=== PATIENT | male | born 1955 | race Caucasian/White ===

== ENCOUNTER 2022-08-20 06:51 | Inpatient (IN) | payer OTHER, MEDICAID ==
[~2022-08-20] VITALS: Ht 177.8 cm; Wt 108.0 kg
[2022-08-20 07:10] VITALS: BP_SYST 157
[2022-08-20 08:06] LABS: BASOPHILS % (AUTO) 0.4 % (0.0-2.0); EOSINOPHILS % (AUTO) 0.3 % (0.0-4.0); HEMATOCRIT 54.1 % (36-54); HEMOGLOBIN 18.2 g/dL (14.0-18.0); LYMPHOCYTES # (AUTO) 1.1 K/uL (1.0-5.5); LYMPHOCYTES % (AUTO) 12.2 % (20.5-51.5); MEAN CORPUSCULAR HEMOGLOBIN 31 pg (27-31); MEAN CORPUSCULAR HGB CONC 34 % (32-36); MEAN CORPUSCULAR VOLUME 91 fL (79.0-98.0); MONOCYTES # (AUTO) 0.5 K/uL (0.0-1.0); MONOCYTES % (AUTO) 5.6 % (1.7-9.3); NEUTROPHILS # (AUTO) 7.2 K/uL (1.8-7.7); NEUTROPHILS % (AUTO) 81.5 % (40.0-70.0); PLATELET COUNT (AUTO) 199 K/uL (130-430); RED BLOOD CELL COUNT(AUTO) 5.93 MIL/uL (4.2-6.2); WHITE BLOOD COUNT (AUTO) 8.8 K/uL (4.8-10.8)
[2022-08-20 08:30] LABS: ALANINE AMINOTRANSFERASE 21 U/L (12-78); ALBUMIN 3.2 g/dL (3.4-4.8); ANION GAP 7 (5-15); ASPARTATE AMINOTRANSFERASE 16 U/L (10-37); CALCIUM 8.8 mg/dL (8.4-11.0); CHLORIDE 101 mmol/L (98-107); CREATININE 0.95 mg/dL (0.55-1.30); FREE T4 (FREE THYROXINE) 1.5 ng/dl (0.8-1.5); GLUCOSE 173 mg/dL (70-99); THYROID STIMULATING HORMONE 0.47 uIu/mL (0.36-3.74); TOTAL BILIRUBIN 1.1 mg/dL (0.0-1.0); UREA NITROGEN, BLOOD 10 mg/dL (8-21)
[2022-08-20 08:31] LABS: GFR AFRICAN AMERICAN 102 mL/min (>90)
[2022-08-20 08:49] LABS: ACETONE, SERUM NEGATIVE (NEGATIVE)
[2022-08-20 09:33] LABS: BILIRUBIN,URINE 1+ (NEGATIVE); CLARITY/URINE CLEAR (CLEAR); COLOR,URINE YELLOW (YELLOW); GLUCOSE,URINE TRACE (NEGATIVE); KETONES,URINE 1+ (NEGATIVE); LEUKOCYTE ESTERASE ,URINE NEGATIVE (NEGATIVE); NITRITE, URINE NEGATIVE (NEGATIVE); PROTEIN URINE 2+ (NEGATIVE)
[2022-08-20 09:43] LABS: BLOOD, URINE TRACE (NEGATIVE)
[2022-08-20 09:53] LABS: BACTERIA,URINE None Seen /HPF (None Seen); HYALINE CASTS, URINE 0-10 /LPF (None Seen); MUCUS,URINE 1+ /LPF (None Seen); WBC,URINE 0-3 /HPF (0-3)
[2022-08-20] MEDS ORDERED: MAGNESIUM SULFATE 50 ML IV PRN (10:00)
[2022-08-20] MEDS ORDERED: MUPIROCIN 2% TOPICAL OINTMENT 22 GM NS PRN (10:00)
[2022-08-20] MEDS ORDERED: ONDANSETRON HCL 4 MG/2 ML VIAL IVP PRN (10:00)
[2022-08-20] MEDS ORDERED: ALBUTEROL SULFATE 0.083% 2.5 MG/3 ML VIAL.NEB INH PRN (10:00)
[2022-08-20] MEDS ORDERED: ACETAMINOPHEN 325 MG TABLET PO PRN ×2 (10:00→12:30)
[2022-08-20] MEDS ORDERED: POTASSIUM CHLORIDE 20 MEQ TAB.PRT.SR PO PRN (10:00)
[2022-08-20] MEDS ORDERED: DEXTROSE 50% JECT 50 ML DISP.SYRIN IVP PRN (10:00)
[2022-08-20] MEDS ORDERED: MORPHINE 2 MG/ML INJ. SYRINGE IVP PRN ×2 (10:00)
[2022-08-20] MEDS ORDERED: LORazepam 2 MG/ML VIAL IVP PRN (10:00)
[2022-08-20] MEDS ORDERED: DOCUSATE SODIUM 100 MG CAPSULE PO PRN (10:00)
[2022-08-20] MEDS ORDERED: iohexoL 350 mgI/mL, 100 ML INFUS..BTL IV ONE (10:13)
[2022-08-20] MEDS ORDERED: METOPROLOL SUCCINATE 25 MG TAB.SR.24H (TOPROL XL) PO ONE (12:30)
[2022-08-20] MEDS ORDERED: FUROSEMIDE 40 MG/4 ML VIAL IVP ONE (13:00)
[2022-08-20 13:49] LABS: INR 1.2 (0.80-1.20); PROTHROMBIN TIME 11.6 SECS (9.5-12.5)
[2022-08-20] MEDS: cefTRIAXone 1 GM IVPB PREMIX 50 ML IV SCH (16:39)
[2022-08-20] MEDS: AZITHROMYCIN 500 MG in NS 250 ML IV SCH (16:39)
[2022-08-20 17:27] VITALS: BP_SYST 126
[2022-08-20 20:00] VITALS: BP_SYST 122
[2022-08-20] MEDS: FUROSEMIDE 40 MG/4 ML VIAL IVP SCH (22:23)
[2022-08-20] MEDS: BUDESONIDE 0.5 MG/2 ML AMPUL.NEB INH SCH (22:45)
[2022-08-20] MEDS: HEPARIN SODIUM,PORCINE 5,000 UNITS/ML VIAL SUBCUT SCH (23:00)
[2022-08-20] MEDS: IPRATROPIUM/ALBUTEROL SULFATE 3 ML AMPUL.NEB (DUONEB) INH SCH ×2 (23:00→23:13)
[2022-08-21] MEDS: IPRATROPIUM/ALBUTEROL SULFATE 3 ML AMPUL.NEB (DUONEB) INH SCH ×5 (03:40→20:40)
[2022-08-21] MEDS: HEPARIN SODIUM,PORCINE 5,000 UNITS/ML VIAL SUBCUT SCH ×4 (06:35→22:39)
[2022-08-21 07:17] LABS: CALCIUM 8.5 mg/dL (8.4-11.0); CREATININE 0.86 mg/dL (0.55-1.30)
[2022-08-21 08:00] VITALS: BP_SYST 153
[2022-08-21 08:06] LABS: BASOPHILS % (AUTO) 0.4 % (0.0-2.0); EOSINOPHILS % (AUTO) 0.4 % (0.0-4.0); HEMATOCRIT 51.7 % (36-54); HEMOGLOBIN 17.4 g/dL (14.0-18.0); LYMPHOCYTES # (AUTO) 1.2 K/uL (1.0-5.5); LYMPHOCYTES % (AUTO) 12.1 % (20.5-51.5); MEAN CORPUSCULAR HEMOGLOBIN 31 pg (27-31); MEAN CORPUSCULAR HGB CONC 34 % (32-36); MEAN CORPUSCULAR VOLUME 91 fL (79.0-98.0); MONOCYTES # (AUTO) 0.7 K/uL (0.0-1.0); MONOCYTES % (AUTO) 6.9 % (1.7-9.3); NEUTROPHILS # (AUTO) 8.2 K/uL (1.8-7.7); NEUTROPHILS % (AUTO) 80.2 % (40.0-70.0); PLATELET COUNT (AUTO) 193 K/uL (130-430); RED BLOOD CELL COUNT(AUTO) 5.69 MIL/uL (4.2-6.2); RED CELL DISTRIBUTION WIDTH 14.2 % (9.0-15.0); WHITE BLOOD COUNT (AUTO) 10.2 K/uL (4.8-10.8)
[2022-08-21] MEDS ORDERED: METOPROLOL SUCCINATE 25 MG TAB.SR.24H (TOPROL XL) PO SCH (09:00)
[2022-08-21] MEDS: BUDESONIDE 0.5 MG/2 ML AMPUL.NEB INH SCH ×2 (10:30→20:41)
[2022-08-21] MEDS: CARVEDILOL 6.25 MG TABLET (COREG) PO SCH ×2 (10:32→22:33)
[2022-08-21] MEDS: SPIRONOLACTONE 25 MG TABLET (ALDACTONE) PO SCH (10:32)
[2022-08-21] MEDS: FUROSEMIDE 40 MG/4 ML VIAL IVP SCH ×2 (10:32→22:17)
[2022-08-21] MEDS: SACUBITRIL/VALSARTAN 24 MG-26 MG 1 TABLET PO SCH ×2 (10:33→22:17)
[2022-08-21 11:07] VITALS: BP_SYST 128
[2022-08-21] MEDS: INSULIN LISPRO SLIDING SCALE 100 UNITS/ML, 3 ML VIAL (humaLOG) SUBCUT PRN ×3 (12:39→22:39)
[2022-08-21] MEDS: cefTRIAXone 1 GM IVPB PREMIX 50 ML IV SCH (13:20)
[2022-08-21] MEDS: AZITHROMYCIN 500 MG in NS 250 ML IV SCH (14:15)
[2022-08-21 16:45] VITALS: BP_SYST 122
[2022-08-21 20:00] VITALS: BP_SYST 118
[2022-08-22] VITALS: BP_SYST 120
[2022-08-22 07:04] LABS: BASOPHILS % (AUTO) 0.5 % (0.0-2.0); EOSINOPHILS % (AUTO) 0.5 % (0.0-4.0); HEMATOCRIT 52.6 % (36-54); HEMOGLOBIN 17.7 g/dL (14.0-18.0); LYMPHOCYTES # (AUTO) 1.1 K/uL (1.0-5.5); LYMPHOCYTES % (AUTO) 12.5 % (20.5-51.5); MEAN CORPUSCULAR HEMOGLOBIN 30 pg (27-31); MEAN CORPUSCULAR HGB CONC 34 % (32-36); MEAN CORPUSCULAR VOLUME 91 fL (79.0-98.0); MONOCYTES # (AUTO) 0.6 K/uL (0.0-1.0); MONOCYTES % (AUTO) 6.6 % (1.7-9.3); NEUTROPHILS # (AUTO) 7.2 K/uL (1.8-7.7); NEUTROPHILS % (AUTO) 79.9 % (40.0-70.0); PLATELET COUNT (AUTO) 201 K/uL (130-430); RED BLOOD CELL COUNT(AUTO) 5.81 MIL/uL (4.2-6.2)
[2022-08-22] MEDS: IPRATROPIUM/ALBUTEROL SULFATE 3 ML AMPUL.NEB (DUONEB) INH SCH ×6 (07:40→23:13)
[2022-08-22 08:00] VITALS: BP_SYST 125
[2022-08-22 08:02] LABS: CALCIUM 8.7 mg/dL (8.4-11.0); CREATININE 0.82 mg/dL (0.55-1.30)
[2022-08-22] MEDS: CARVEDILOL 6.25 MG TABLET (COREG) PO SCH ×2 (08:38→22:09)
[2022-08-22] MEDS: SACUBITRIL/VALSARTAN 24 MG-26 MG 1 TABLET PO SCH ×2 (08:39→22:03)
[2022-08-22] MEDS: FUROSEMIDE 40 MG/4 ML VIAL IVP SCH ×2 (08:39→22:08)
[2022-08-22] MEDS: BUDESONIDE 0.5 MG/2 ML AMPUL.NEB INH SCH ×2 (08:41→20:10)
[2022-08-22] MEDS: SPIRONOLACTONE 25 MG TABLET (ALDACTONE) PO SCH (08:47)
[2022-08-22 09:29] LABS: INR 1.3 (0.80-1.20); PROTHROMBIN TIME 12.7 SECS (9.5-12.5)
[2022-08-22] MEDS ORDERED: metOLazone 2.5 MG TABLET PO ONE (09:45)
[2022-08-22] MEDS: INSULIN LISPRO SLIDING SCALE 100 UNITS/ML, 3 ML VIAL (humaLOG) SUBCUT PRN ×2 (11:01→17:10)
[2022-08-22 12:49] VITALS: BP_SYST 123
[2022-08-22] MEDS: AZITHROMYCIN 500 MG in NS 250 ML IV SCH (14:00)
[2022-08-22] MEDS: HEPARIN SODIUM,PORCINE 5,000 UNITS/ML VIAL SUBCUT SCH ×2 (14:00→22:20)
[2022-08-22] MEDS: cefTRIAXone 1 GM IVPB PREMIX 50 ML IV SCH (14:13)
[2022-08-22 16:42] VITALS: BP_SYST 95
[2022-08-22 20:30] VITALS: BP_SYST 111
[2022-08-23] VITALS: BP_SYST 123
[2022-08-23] MEDS: IPRATROPIUM/ALBUTEROL SULFATE 3 ML AMPUL.NEB (DUONEB) INH SCH ×6 (03:00→22:53)
[2022-08-23] MEDS: HEPARIN SODIUM,PORCINE 5,000 UNITS/ML VIAL SUBCUT SCH ×3 (06:03→21:19)
[2022-08-23 06:46] LABS: CALCIUM 8.7 mg/dL (8.4-11.0); CREATININE 0.82 mg/dL (0.55-1.30)
[2022-08-23 07:33] LABS: BASOPHILS # (AUTO) 0.1 K/uL (0.0-0.2); BASOPHILS % (AUTO) 0.5 % (0.0-2.0); EOSINOPHILS # (AUTO) 0.1 K/uL (0.0-0.4); EOSINOPHILS % (AUTO) 1.2 % (0.0-4.0); HEMATOCRIT 53.7 % (36-54); HEMOGLOBIN 17.9 g/dL (14.0-18.0); LYMPHOCYTES # (AUTO) 1.6 K/uL (1.0-5.5); MEAN CORPUSCULAR HEMOGLOBIN 30 pg (27-31); MEAN CORPUSCULAR HGB CONC 33 % (32-36); MEAN CORPUSCULAR VOLUME 90 fL (79.0-98.0); MONOCYTES # (AUTO) 0.8 K/uL (0.0-1.0); MONOCYTES % (AUTO) 7.9 % (1.7-9.3); NEUTROPHILS # (AUTO) 7.9 K/uL (1.8-7.7); NEUTROPHILS % (AUTO) 75.4 % (40.0-70.0); PLATELET COUNT (AUTO) 183 K/uL (130-430); RED BLOOD CELL COUNT(AUTO) 5.95 MIL/uL (4.2-6.2); RED CELL DISTRIBUTION WIDTH 13.9 % (9.0-15.0); WHITE BLOOD COUNT (AUTO) 10.4 K/uL (4.8-10.8)
[2022-08-23 08:09] VITALS: BP_SYST 127
[2022-08-23] MEDS: CARVEDILOL 6.25 MG TABLET (COREG) PO SCH (09:20)
[2022-08-23] MEDS: SACUBITRIL/VALSARTAN 24 MG-26 MG 1 TABLET PO SCH ×2 (09:21→21:20)
[2022-08-23] MEDS: BUDESONIDE 0.5 MG/2 ML AMPUL.NEB INH SCH ×2 (09:21→20:29)
[2022-08-23] MEDS: SPIRONOLACTONE 25 MG TABLET (ALDACTONE) PO SCH (09:21)
[2022-08-23 09:22] VITALS: BP_SYST 127
[2022-08-23] MEDS: FUROSEMIDE 40 MG/4 ML VIAL IVP SCH ×2 (09:22→21:18)
[2022-08-23 11:20] VITALS: BP_SYST 108
[2022-08-23] MEDS: INSULIN LISPRO SLIDING SCALE 100 UNITS/ML, 3 ML VIAL (humaLOG) SUBCUT PRN ×2 (12:16→17:50)
[2022-08-23] MEDS: cefTRIAXone 1 GM IVPB PREMIX 50 ML IV SCH (14:04)
[2022-08-23 15:15] VITALS: BP_SYST 95
[2022-08-23] MEDS: AZITHROMYCIN 500 MG in NS 250 ML IV SCH (15:20)
[2022-08-23 20:00] VITALS: BP_SYST 102
[2022-08-23] MEDS: CARVEDILOL 12.5 MG TABLET (COREG) PO SCH (21:19)
[2022-08-24 02:19] VITALS: BP_SYST 147
[2022-08-24] MEDS: IPRATROPIUM/ALBUTEROL SULFATE 3 ML AMPUL.NEB (DUONEB) INH SCH ×4 (03:39→15:33)
[2022-08-24] MEDS: HEPARIN SODIUM,PORCINE 5,000 UNITS/ML VIAL SUBCUT SCH ×3 (06:25→20:17)
[2022-08-24 06:53] LABS: BASOPHILS # (AUTO) 0.1 K/uL (0.0-0.2); BASOPHILS % (AUTO) 0.7 % (0.0-2.0); EOSINOPHILS # (AUTO) 0.2 K/uL (0.0-0.4); EOSINOPHILS % (AUTO) 2.4 % (0.0-4.0); HEMATOCRIT 52.2 % (36-54); HEMOGLOBIN 17.8 g/dL (14.0-18.0); LYMPHOCYTES # (AUTO) 1.4 K/uL (1.0-5.5); LYMPHOCYTES % (AUTO) 18.2 % (20.5-51.5); MEAN CORPUSCULAR HEMOGLOBIN 31 pg (27-31); MEAN CORPUSCULAR HGB CONC 34 % (32-36); MEAN CORPUSCULAR VOLUME 90 fL (79.0-98.0); MONOCYTES # (AUTO) 0.6 K/uL (0.0-1.0); MONOCYTES % (AUTO) 7.8 % (1.7-9.3); NEUTROPHILS # (AUTO) 5.6 K/uL (1.8-7.7); NEUTROPHILS % (AUTO) 70.9 % (40.0-70.0); PLATELET COUNT (AUTO) 201 K/uL (130-430); RED BLOOD CELL COUNT(AUTO) 5.82 MIL/uL (4.2-6.2); RED CELL DISTRIBUTION WIDTH 13.9 % (9.0-15.0); WHITE BLOOD COUNT (AUTO) 7.9 K/uL (4.8-10.8)
[2022-08-24 07:26] LABS: CALCIUM 9.3 mg/dL (8.4-11.0); CREATININE 0.91 mg/dL (0.55-1.30)
[2022-08-24] MEDS: BUDESONIDE 0.5 MG/2 ML AMPUL.NEB INH SCH (07:34)
[2022-08-24] MEDS ORDERED: SPIR25TA6 PO (08:57)
[2022-08-24] MEDS ORDERED: CARV12.548 PO (08:58)
[2022-08-24] MEDS ORDERED: FURO-149 PO (08:59)
[2022-08-24] MEDS ORDERED: SACU1TAB PO (09:00)
[2022-08-24] MEDS: CARVEDILOL 12.5 MG TABLET (COREG) PO SCH ×2 (09:49→20:16)
[2022-08-24] MEDS: FUROSEMIDE 40 MG/4 ML VIAL IVP SCH ×3 (09:49→20:27)
[2022-08-24] MEDS: SACUBITRIL/VALSARTAN 24 MG-26 MG 1 TABLET PO SCH ×2 (09:49→20:16)
[2022-08-24] MEDS: SPIRONOLACTONE 25 MG TABLET (ALDACTONE) PO SCH (09:49)
[2022-08-24 11:36] VITALS: BP_SYST 130
[2022-08-24] MEDS: cefTRIAXone 1 GM IVPB PREMIX 50 ML IV SCH (13:00)
[2022-08-24] MEDS: AZITHROMYCIN 500 MG in NS 250 ML IV SCH (14:00)
[2022-08-24 17:07] VITALS: BP_SYST 136
[2022-08-24 18:09] VITALS: BP_SYST 136
[2022-08-24] MEDS: INSULIN LISPRO SLIDING SCALE 100 UNITS/ML, 3 ML VIAL (humaLOG) SUBCUT PRN (20:18)
== END 2022-08-24 20:58 | DRG 193 ==
LOC: SED 06:51 → STU 09:49
PROVIDERS: ADMIT Family Medicine; ATTEND Family Medicine
PROC: 0W993ZZ Drainage of Right Pleural Cavity, Percutaneous Approach (ICD-10-PCS; principal; 2022-08-22)
DX: J18.9 Pneumonia, unspecified organism (principal); I50.43 Acute on chronic combined systolic (congestive) and diastolic (congestive) heart failure; J96.01 Acute respiratory failure with hypoxia; J44.1 Chronic obstructive pulmonary disease with (acute) exacerbation; E44.1 Mild protein-calorie malnutrition; I42.0 Dilated cardiomyopathy; I11.0 Hypertensive heart disease with heart failure; I27.81 Cor pulmonale (chronic); E66.9 Obesity, unspecified; F10.10 Alcohol abuse, uncomplicated; Y90.9 Presence of alcohol in blood, level not specified; Z20.822 Contact with and (suspected) exposure to COVID-19; Z87.891 Personal history of nicotine dependence; Z68.34 Body mass index [BMI] 34.0-34.9, adult
CPT/HCPCS: 32555; 36415; 36600; 71045; 71275; 76376; 76700-TC; 80048; 80053; 81000; 82009; 82550; 82803-TC; 82962; 83037; 83605; 83735; 83880; 84439; 84443; 84484; 85025; 85610-TC; 85730-TC; 88108; 93005; 93306; 93970; 94640; 94760; 97110-GP; 97116-GP; 97530-GP; 99285; G0378; J0456; J0696; J1644; J1940; J7050; J7626; Q9967

== ENCOUNTER 2023-06-11 18:53 | Inpatient (IN) | payer OTHER, MEDICAID ==
[~2023-06-11] VITALS: Ht 180.3 cm; Wt 73.9 kg
[~2023-06-11 18:53] MED LIST: CARV12.548 PO; CARV6.2554 PO; CAS50 PO; CEFE2FRO IV; FURO-149 PO; INSU100V9 SUBCUT; LOVI40 SUBCUT; PROI40 IVP; SACU1TAB PO; SPIR25TA6 PO
[2023-06-11] MEDS ORDERED: ACETAMINOPHEN 325 MG SUPP.RECT RC ONE (19:15)
[2023-06-11] MEDS ORDERED: NACL 0.9% 1,000 ML IV ONE (19:15)
[2023-06-11 19:16] VITALS: BP_SYST 141; PULSE 110; RESP 26; TEMP 100.5; O2SAT 91
[2023-06-11] MEDS ORDERED: ALBUTEROL SULFATE 0.083% 2.5 MG/3 ML VIAL.NEB INH ONE (19:30)
[2023-06-11] MEDS ORDERED: IPRATROPIUM BROM 0.5 MG/2.5 ML VIAL.NEB (ATROVENT) INH ONE (19:30)
[2023-06-11 19:37] LABS: BASOPHILS % (AUTO) 0.2 % (0.0-2.0); HEMATOCRIT 34.7 % (36-54); HEMOGLOBIN 12.3 g/dL (14.0-18.0); LYMPHOCYTES # (AUTO) 0.8 K/uL (1.0-5.5); LYMPHOCYTES % (AUTO) 3.8 % (20.5-51.5); MEAN CORPUSCULAR HEMOGLOBIN 32 pg (27-31); MEAN CORPUSCULAR HGB CONC 35 % (32-36); MEAN CORPUSCULAR VOLUME 90 fL (79.0-98.0); MONOCYTES # (AUTO) 0.7 K/uL (0.0-1.0); MONOCYTES % (AUTO) 3.3 % (1.7-9.3); NEUTROPHILS # (AUTO) 19.1 K/uL (1.8-7.7); NEUTROPHILS % (AUTO) 92.7 % (40.0-70.0); PLATELET COUNT (AUTO) 442 K/uL (130-430); RED BLOOD CELL COUNT(AUTO) 3.86 MIL/uL (4.2-6.2); RED CELL DISTRIBUTION WIDTH 13.5 % (9.0-15.0); WHITE BLOOD COUNT (AUTO) 20.6 K/uL (4.8-10.8)
[2023-06-11 19:42] LABS: BILIRUBIN,URINE NEGATIVE (NEGATIVE); BLOOD, URINE 3+ (NEGATIVE); CLARITY/URINE CLOUDY (CLEAR); COLOR,URINE YELLOW (YELLOW); GLUCOSE,URINE NEGATIVE (NEGATIVE); KETONES,URINE TRACE (NEGATIVE); LEUKOCYTE ESTERASE ,URINE NEGATIVE (NEGATIVE); NITRITE, URINE NEGATIVE (NEGATIVE); PROTEIN URINE 2+ (NEGATIVE)
[2023-06-11 19:50] LABS: BLOOD GAS PCO2 33.9 mmHg (32.0-45.0); BLOOD GAS PH 7.504 (7.350-7.450)
[2023-06-11 19:51] LABS: ABG O2 SAT% ESTIMATE 89.4 % (94.0-100.0); BLOOD GAS BASE EXCESS 3.4 mmol/L (-3.0-3.0); BLOOD GAS HCO3 26.1 mmol/L (21.0-27.0); BLOOD GAS PO2 50.7 mmHg (75.0-100.0)
[2023-06-11 19:52] LABS: INR 1.1 (0.80-1.20); PROTHROMBIN TIME 11.8 SECS (9.5-12.5)
[2023-06-11 20:04] LABS: ALANINE AMINOTRANSFERASE 22 U/L (12-78); ALBUMIN 2.5 g/dL (3.4-4.8); ANION GAP 6 (5-15); ASPARTATE AMINOTRANSFERASE 75 U/L (10-37); CALCIUM 8.4 mg/dL (8.4-11.0); CARBON DIOXIDE 29 mmol/L (23-29); CHLORIDE 92 mmol/L (98-107); CREATININE 0.67 mg/dL (0.55-1.30); GFR AFRICAN AMERICAN 153 mL/min (>90); GFR NON AFRICAN-AMERICAN 126 mL/min (>90); GLUCOSE 187 mg/dL (74-106); POTASSIUM 4.8 mmol/L (3.5-5.1); SODIUM SERUM 127 mmol/L (136-145); TOTAL BILIRUBIN 0.6 mg/dL (0.0-1.0); TOTAL PROTEIN, SERUM 8.7 g/dL (6.4-8.3); UREA NITROGEN, BLOOD 9 mg/dL (8-21)
[2023-06-11 20:06] LABS: BILIRUBIN,DIRECT 0.2 mg/dL (0.0-0.3)
[2023-06-11 20:09] LABS: BACTERIA,URINE MODERATE /HPF (None Seen); RBC,URINE >100 /HPF (0-3)
[2023-06-11 20:10] LABS: COARSE GRANULAR CASTS,URINE 0-10 /LPF (None Seen); MUCUS,URINE 2+ /LPF (None Seen); URINE AMORPHOUS URATE 1+ /HPF (None Seen)
[2023-06-11 20:12] LABS: INFLUENZA TYPE A Negative (NEGATIVE); INFLUENZA TYPE B NEGATIVE (NEGATIVE)
[2023-06-11] MEDS ORDERED: metroNIDAZOLE 500 mg/NS 100 ML IV ONE (21:00)
[2023-06-11] MEDS ORDERED: AZITHROMYCIN 500 MG in NS 250 ML IV ONE (21:00)
[2023-06-11] MEDS ORDERED: cefTRIAXone 1 GM IVPB PREMIX 50 ML IV ONE (21:00)
[2023-06-11] MEDS ORDERED: AZITHROMYCIN 500 MG/VIAL (ZITHROMAX) IV ONE (21:32)
[2023-06-12] MEDS ORDERED: AZITHROMYCIN 500 MG in NS 250 ML IV SCH (00:45)
[2023-06-12] MEDS: METHYLPREDNISOLONE SOD SUCC 40 MG/ML VIAL IVP SCH ×3 (00:45→22:46)
[2023-06-12] MEDS ORDERED: PANTOPRAZOLE SODIUM 40 MG/VIAL (PROTONIX) IVP ONE (00:45)
[2023-06-12] MEDS ORDERED: DEXTROSE 50% JECT 50 ML DISP.SYRIN IVP PRN (01:00)
[2023-06-12] MEDS ORDERED: METOCLOPRAMIDE HCL 10 MG/2 ML VIAL IVP PRN (01:00)
[2023-06-12] MEDS ORDERED: IPRATROPIUM/ALBUTEROL SULFATE 3 ML AMPUL.NEB (DUONEB) INH SCH ×2 (01:00→09:00)
[2023-06-12] MEDS ORDERED: LORazepam 2 MG/ML VIAL IVP PRN (01:00)
[2023-06-12] MEDS ORDERED: ONDANSETRON HCL 4 MG/2 ML VIAL IVP PRN (01:00)
[2023-06-12] MEDS ORDERED: TRAM50TA2 PO (02:38)
[2023-06-12] MEDS ORDERED: ONDA4TAB55 PO (02:38)
[2023-06-12] MEDS ORDERED: TAMS0.4C96 PO (02:38)
[2023-06-12] MEDS ORDERED: AZITHROMYCIN 500 MG/VIAL (ZITHROMAX) IV ONE ×2 (02:55→22:12)
[2023-06-12] MEDS ORDERED: PIPERACILLIN/TAZOBACTAM 3.375 GM/VIAL (ZOSYN) IV ONE ×3 (02:56→22:11)
[2023-06-12] MEDS ORDERED: PANTOPRAZOLE SODIUM 40 MG/VIAL (PROTONIX) ONE (03:02)
[2023-06-12] MEDS: PIPERACILLIN/TAZO 3.375/DEX-IS 50 ML IV SCH ×4 (03:09→23:03)
[2023-06-12] MEDS: NACL 0.9% 1,000 ML IV SCH ×3 (03:13→13:09)
[2023-06-12] MEDS ORDERED: ZINC PO (04:16)
[2023-06-12] MEDS ORDERED: SIME80TA15 PO (04:16)
[2023-06-12] MEDS ORDERED: [UNRECOGNIZED DRUG - OTHER] PO (04:16)
[2023-06-12] MEDS ORDERED: MULT-976 PO (04:16)
[2023-06-12] MEDS ORDERED: CHOL500013 PO (04:16)
[2023-06-12] MEDS ORDERED: ASCO500T20 PO (04:18)
[2023-06-12] MEDS ORDERED: FERROUS SUL PO (04:18)
[2023-06-12 04:27] VITALS: BP_SYST 124; PULSE 112; O2SAT 96
[2023-06-12 08:03] VITALS: O2SAT 94
[2023-06-12] MEDS: PANTOPRAZOLE SODIUM 40 MG/VIAL (PROTONIX) IVP SCH ×2 (08:46→22:23)
[2023-06-12 11:42] VITALS: O2SAT 96
[2023-06-12] MEDS: IPRATROPIUM/ALBUTEROL SULFATE 3 ML AMPUL.NEB (DUONEB) INH SCH ×3 (11:42→19:45)
[2023-06-12] MEDS ORDERED: INSULIN REGULAR, HUMAN 10 UNITS/0.1 ML, 3 ML VIAL ONE ×2 (11:52→16:52)
[2023-06-12 15:38] VITALS: O2SAT 92
[2023-06-12] MEDS: INSULIN REGULAR, HUMAN 100 UNITS/ML, 3 ML VIAL (humuLIN R) SUBCUT PRN ×2 (17:03→23:32)
[2023-06-12] MEDS: AZITHROMYCIN 500 MG in NS 250 ML IV SCH (22:21)
[2023-06-12 22:30] VITALS: BP_SYST 128; PULSE 85; RESP 20; TEMP 98.6; O2SAT 95
[2023-06-13] VITALS (9 sets, daily range): BP systolic 130–158; PULSE 81–101; RESP 16–20; TEMP 97.1–98.8; O2SAT 94–99
[2023-06-13] MEDS: PIPERACILLIN/TAZO 3.375/DEX-IS 50 ML IV SCH ×3 (06:04→17:58)
[2023-06-13 06:38] LABS: CREATININE 0.64 mg/dL (0.55-1.30); POTASSIUM 3.7 mmol/L (3.5-5.1); TOTAL BILIRUBIN 0.3 mg/dL (0.0-1.0); TOTAL PROTEIN, SERUM 7.6 g/dL (6.4-8.3)
[2023-06-13] MEDS: INSULIN REGULAR, HUMAN 100 UNITS/ML, 3 ML VIAL (humuLIN R) SUBCUT PRN ×4 (06:50→22:30)
[2023-06-13 07:18] LABS: BASOPHILS % (AUTO) 0.1 % (0.0-2.0); HEMATOCRIT 32.9 % (36-54); HEMOGLOBIN 11.7 g/dL (14.0-18.0); LYMPHOCYTES % (AUTO) 7.4 % (20.5-51.5); MEAN CORPUSCULAR HEMOGLOBIN 32 pg (27-31); MEAN CORPUSCULAR HGB CONC 36 % (32-36); MEAN CORPUSCULAR VOLUME 91 fL (79.0-98.0); MONOCYTES # (AUTO) 0.3 K/uL (0.0-1.0); MONOCYTES % (AUTO) 2.5 % (1.7-9.3); NEUTROPHILS # (AUTO) 12.1 K/uL (1.8-7.7); PLATELET COUNT (AUTO) 409 K/uL (130-430); RED BLOOD CELL COUNT(AUTO) 3.64 MIL/uL (4.2-6.2); RED CELL DISTRIBUTION WIDTH 13.6 % (9.0-15.0); WHITE BLOOD COUNT (AUTO) 13.5 K/uL (4.8-10.8)
[2023-06-13] MEDS: NACL 0.9% 1,000 ML IV SCH ×2 (08:00→11:40)
[2023-06-13] MEDS: IPRATROPIUM/ALBUTEROL SULFATE 3 ML AMPUL.NEB (DUONEB) INH SCH ×4 (08:07→19:51)
[2023-06-13] MEDS: METHYLPREDNISOLONE SOD SUCC 40 MG/ML VIAL IVP SCH ×2 (08:55→21:14)
[2023-06-13] MEDS: PANTOPRAZOLE SODIUM 40 MG/VIAL (PROTONIX) IVP SCH ×2 (08:56→21:13)
[2023-06-13 11:06] LABS: % FREE PSA 12.8 % (.)
[2023-06-13] MEDS ORDERED: ACETAMINOPHEN 325 MG TABLET PO PRN (20:45)
[2023-06-13] MEDS: AZITHROMYCIN 500 MG in NS 250 ML IV SCH (21:13)
[2023-06-13] MEDS: traMADol HCL HCL 50 MG TABLET (ULTRAM) PO PRN (21:15)
[2023-06-14] VITALS (11 sets, daily range): BP systolic 153–165; PULSE 96–105; RESP 16–18; TEMP 96.5–97.8; O2SAT 95–97
[2023-06-14] MEDS: PIPERACILLIN/TAZO 3.375/DEX-IS 50 ML IV SCH ×5 (00:33→23:44)
[2023-06-14 06:10] LABS: BASOPHILS % (AUTO) 0.1 % (0.0-2.0); HEMATOCRIT 35.1 % (36-54); HEMOGLOBIN 12.3 g/dL (14.0-18.0); LYMPHOCYTES # (AUTO) 1.2 K/uL (1.0-5.5); LYMPHOCYTES % (AUTO) 7.4 % (20.5-51.5); MEAN CORPUSCULAR HEMOGLOBIN 31 pg (27-31); MEAN CORPUSCULAR HGB CONC 35 % (32-36); MEAN CORPUSCULAR VOLUME 89 fL (79.0-98.0); MONOCYTES # (AUTO) 0.8 K/uL (0.0-1.0); MONOCYTES % (AUTO) 5.2 % (1.7-9.3); NEUTROPHILS # (AUTO) 13.9 K/uL (1.8-7.7); NEUTROPHILS % (AUTO) 87.3 % (40.0-70.0); PLATELET COUNT (AUTO) 415 K/uL (130-430); RED BLOOD CELL COUNT(AUTO) 3.95 MIL/uL (4.2-6.2); RED CELL DISTRIBUTION WIDTH 13.2 % (9.0-15.0); WHITE BLOOD COUNT (AUTO) 15.9 K/uL (4.8-10.8)
[2023-06-14 06:46] LABS: CREATININE 0.53 mg/dL (0.55-1.30); POTASSIUM 3.2 mmol/L (3.5-5.1); TOTAL BILIRUBIN 0.4 mg/dL (0.0-1.0); TOTAL PROTEIN, SERUM 7.4 g/dL (6.4-8.3)
[2023-06-14] MEDS: INSULIN REGULAR, HUMAN 100 UNITS/ML, 3 ML VIAL (humuLIN R) SUBCUT PRN ×4 (06:57→20:44)
[2023-06-14] MEDS: IPRATROPIUM/ALBUTEROL SULFATE 3 ML AMPUL.NEB (DUONEB) INH SCH ×4 (07:20→19:52)
[2023-06-14 08:06] LABS: IMMUNOGLOBULIN G, SERUM 1940 mg/dL (603-1613); IMMUNOGLOBULIN M, SERUM 156 mg/dL (20-172)
[2023-06-14] MEDS: traMADol HCL HCL 50 MG TABLET (ULTRAM) PO PRN (08:34)
[2023-06-14] MEDS: METHYLPREDNISOLONE SOD SUCC 40 MG/ML VIAL IVP SCH ×2 (08:35→20:31)
[2023-06-14] MEDS: PANTOPRAZOLE SODIUM 40 MG/VIAL (PROTONIX) IVP SCH ×2 (08:35→20:31)
[2023-06-14] MEDS: BICALUTAMIDE 50 MG TABLET PO SCH (08:35)
[2023-06-14 10:07] LABS: A/G RATIO 0.5 (0.7-1.7); ALBUMIN 2.2 g/dL (2.9-4.4); ALPHA-1-GLOBULIN 0.5 g/dL (0.0-0.4); ALPHA-2-GLOBULIN 1.2 g/dL (0.4-1.0); GLOBULIN, TOTAL 4.7 g/dL (2.2-3.9); M-SPIKE Not Observed g/dL (Not Observed)
[2023-06-14] MEDS ORDERED: POTASSIUM CHLORIDE 20 MEQ TABLET.ER PO ONE (12:00)
[2023-06-14] MEDS ORDERED: cloNIDine HCL 0.1 MG TABLET PO PRN (12:00)
[2023-06-14] MEDS ORDERED: traMADol HCL HCL 50 MG TABLET (ULTRAM) PO SCH (14:30)
[2023-06-14] MEDS ORDERED: PANTOPRAZOLE SODIUM 40 MG/VIAL (PROTONIX) IVP SCH (14:30)
[2023-06-14] MEDS ORDERED: BICALUTAMIDE 50 MG TABLET PO SCH (14:30)
[2023-06-14] MEDS ORDERED: MULTIVITAMINS TAB 1 TABLET PO ONE (15:00)
[2023-06-14] MEDS ORDERED: CARVEDILOL 6.25 MG TABLET (COREG) PO ONE (15:00)
[2023-06-14] MEDS ORDERED: CHOLECALCIFEROL (VITAMIN D3) 2,000 UNIT TABLET PO ONE (15:00)
[2023-06-14] MEDS ORDERED: ONDANSETRON 4 MG ODT TAB PO PRN (15:00)
[2023-06-14 18:52] LABS: TPROTEIN U,24HR 524.7 mg/24HR (0-130)
[2023-06-14] MEDS: TAMSULOSIN HCL 0.4 MG CAP PO SCH (20:32)
[2023-06-14] MEDS: CARVEDILOL 6.25 MG TABLET (COREG) PO SCH (20:32)
[2023-06-14] MEDS: AZITHROMYCIN 500 MG in NS 250 ML IV SCH (20:33)
[2023-06-14] MEDS: INSULIN GLARGINE 100 UNITS/ML, 10 ML VIAL SUBCUT SCH (21:00)
[2023-06-15] VITALS (8 sets, daily range): BP systolic 131–150; PULSE 85–102; RESP 16–20; TEMP 97–97.8; O2SAT 94–99
[2023-06-15] MEDS: PIPERACILLIN/TAZO 3.375/DEX-IS 50 ML IV SCH ×4 (06:18→23:51)
[2023-06-15] MEDS: INSULIN REGULAR, HUMAN 100 UNITS/ML, 3 ML VIAL (humuLIN R) SUBCUT PRN ×3 (06:29→20:37)
[2023-06-15] MEDS: IPRATROPIUM/ALBUTEROL SULFATE 3 ML AMPUL.NEB (DUONEB) INH SCH ×4 (07:25→21:57)
[2023-06-15] MEDS: MULTIVITAMINS TAB 1 TABLET PO SCH (09:04)
[2023-06-15] MEDS: ASCORBIC ACID 500 MG TABLET PO SCH (09:04)
[2023-06-15] MEDS: TAMSULOSIN HCL 0.4 MG CAP PO SCH ×2 (09:04→20:33)
[2023-06-15] MEDS: CHOLECALCIFEROL (VITAMIN D3) 2,000 UNIT TABLET PO SCH (09:04)
[2023-06-15] MEDS: PANTOPRAZOLE SODIUM 40 MG/VIAL (PROTONIX) IVP SCH ×2 (09:05→20:33)
[2023-06-15] MEDS: SIMETHICONE 80 MG TAB.CHEW PO SCH (09:05)
[2023-06-15] MEDS: CARVEDILOL 6.25 MG TABLET (COREG) PO SCH ×2 (09:05→20:33)
[2023-06-15] MEDS: METHYLPREDNISOLONE SOD SUCC 40 MG/ML VIAL IVP SCH (09:05)
[2023-06-15] MEDS: BICALUTAMIDE 50 MG TABLET PO SCH (09:06)
[2023-06-15] MEDS ORDERED: NS 1000 ML IV.SOLN IV ONE (12:40)
[2023-06-15] MEDS ORDERED: METOCLOPRAMIDE HCL 10 MG/2 ML VIAL ONE (12:40)
[2023-06-15] MEDS ORDERED: ONDANSETRON HCL 4 MG/2 ML VIAL ONE (12:40)
[2023-06-15] MEDS ORDERED: LIDOCAINE 2%, 20 ML MDV ONE (12:40)
[2023-06-15] MEDS ORDERED: NS IRRIG SOLN 1000 ML IR ONE (12:40)
[2023-06-15] MEDS ORDERED: fentaNYL CITRATE/PF 100 MCG/2 ML AMP ONE (12:40)
[2023-06-15] MEDS ORDERED: PROPOFOL 200MG/ 20ML VIAL (DIPRIVAN) IV ONE (12:40)
[2023-06-15] MEDS ORDERED: SEVOFLURANE 15 MIN GAS INH ONE (12:40)
[2023-06-15] MEDS ORDERED: HYDROmorphone 2 MG/ML VIAL IVP PRN (13:30)
[2023-06-15] MEDS ORDERED: ONDANSETRON HCL 4 MG/2 ML VIAL IVP PRN (13:30)
[2023-06-15] MEDS ORDERED: NACL 0.9% 1,000 ML IV SCH (13:30)
[2023-06-15] MEDS ORDERED: HYDROmorphone 1 MG/ML INJ. CARTRIDGE IVP PRN (13:30)
[2023-06-15] MEDS: AZITHROMYCIN 500 MG in NS 250 ML IV SCH (20:35)
[2023-06-15] MEDS: INSULIN GLARGINE 100 UNITS/ML, 10 ML VIAL SUBCUT SCH (20:35)
[2023-06-15] MEDS ORDERED: LOPERAMIDE HCL 2 MG CAPSULE PO ONE ×2 (23:30)
[2023-06-15] MEDS ORDERED: HYDROcodone/ACETAMIN 5-325 MG TAB (NORCO/ VICODIN) PO PRN (23:30)
[2023-06-16] VITALS (9 sets, daily range): BP systolic 134–166; PULSE 74–99; RESP 16–18; TEMP 97–97.8; O2SAT 95–99
[2023-06-16] MEDS: PIPERACILLIN/TAZO 3.375/DEX-IS 50 ML IV SCH ×3 (05:30→17:14)
[2023-06-16 06:05] LABS: BASOPHILS # (AUTO) 0.1 K/uL (0.0-0.2); BASOPHILS % (AUTO) 0.4 % (0.0-2.0); EOSINOPHILS % (AUTO) 0.2 % (0.0-4.0); HEMATOCRIT 36.3 % (36-54); HEMOGLOBIN 12.6 g/dL (14.0-18.0); LYMPHOCYTES # (AUTO) 2.5 K/uL (1.0-5.5); LYMPHOCYTES % (AUTO) 17.9 % (20.5-51.5); MEAN CORPUSCULAR HEMOGLOBIN 31 pg (27-31); MEAN CORPUSCULAR HGB CONC 35 % (32-36); MEAN CORPUSCULAR VOLUME 89 fL (79.0-98.0); MONOCYTES # (AUTO) 1.3 K/uL (0.0-1.0); MONOCYTES % (AUTO) 9.5 % (1.7-9.3); PLATELET COUNT (AUTO) 353 K/uL (130-430); RED BLOOD CELL COUNT(AUTO) 4.07 MIL/uL (4.2-6.2); RED CELL DISTRIBUTION WIDTH 13.6 % (9.0-15.0)
[2023-06-16 06:24] LABS: ALBUMIN 1.9 g/dL (3.4-4.8); CALCIUM 8.8 mg/dL (8.4-11.0); CREATININE 0.51 mg/dL (0.55-1.30); POTASSIUM 3.4 mmol/L (3.5-5.1); TOTAL BILIRUBIN 0.4 mg/dL (0.0-1.0); TOTAL PROTEIN, SERUM 6.8 g/dL (6.4-8.3)
[2023-06-16] MEDS: IPRATROPIUM/ALBUTEROL SULFATE 3 ML AMPUL.NEB (DUONEB) INH SCH ×4 (07:00→19:44)
[2023-06-16 08:48] LABS: WHITE BLOOD COUNT (AUTO) 13.9 K/uL (4.8-10.8)
[2023-06-16] MEDS: PANTOPRAZOLE SODIUM 40 MG/VIAL (PROTONIX) IVP SCH ×2 (09:10→20:13)
[2023-06-16] MEDS: TAMSULOSIN HCL 0.4 MG CAP PO SCH ×2 (09:11→20:12)
[2023-06-16] MEDS: MULTIVITAMINS TAB 1 TABLET PO SCH (09:11)
[2023-06-16] MEDS: ASCORBIC ACID 500 MG TABLET PO SCH (09:11)
[2023-06-16] MEDS: SIMETHICONE 80 MG TAB.CHEW PO SCH (09:11)
[2023-06-16] MEDS: CARVEDILOL 6.25 MG TABLET (COREG) PO SCH ×2 (09:12→20:13)
[2023-06-16] MEDS: LOPERAMIDE HCL 2 MG CAPSULE PO PRN ×2 (09:13→20:12)
[2023-06-16] MEDS: BICALUTAMIDE 50 MG TABLET PO SCH (09:14)
[2023-06-16] MEDS: CHOLECALCIFEROL (VITAMIN D3) 2,000 UNIT TABLET PO SCH (09:16)
[2023-06-16] MEDS: INSULIN REGULAR, HUMAN 100 UNITS/ML, 3 ML VIAL (humuLIN R) SUBCUT PRN ×3 (11:52→20:17)
[2023-06-16] MEDS ORDERED: POTASSIUM CHLORIDE 20 MEQ TABLET.ER PO ONE (14:30)
[2023-06-16] MEDS: AZITHROMYCIN 500 MG in NS 250 ML IV SCH (20:14)
[2023-06-16] MEDS: INSULIN GLARGINE 100 UNITS/ML, 10 ML VIAL SUBCUT SCH (20:15)
[2023-06-17] VITALS (7 sets, daily range): BP systolic 117–137; PULSE 90–96; RESP 16–18; TEMP 97.1–98.6; O2SAT 95–99
[2023-06-17] MEDS: PIPERACILLIN/TAZO 3.375/DEX-IS 50 ML IV SCH ×3 (00:08→12:27)
[2023-06-17 05:45] LABS: BASOPHILS % (AUTO) 0.2 % (0.0-2.0); EOSINOPHILS # (AUTO) 0.2 K/uL (0.0-0.4); HEMATOCRIT 34.9 % (36-54); HEMOGLOBIN 12.5 g/dL (14.0-18.0); LYMPHOCYTES # (AUTO) 2.6 K/uL (1.0-5.5); LYMPHOCYTES % (AUTO) 15.8 % (20.5-51.5); MEAN CORPUSCULAR HEMOGLOBIN 32 pg (27-31); MEAN CORPUSCULAR HGB CONC 36 % (32-36); MEAN CORPUSCULAR VOLUME 89 fL (79.0-98.0); MONOCYTES # (AUTO) 1.1 K/uL (0.0-1.0); MONOCYTES % (AUTO) 6.5 % (1.7-9.3); NEUTROPHILS # (AUTO) 12.5 K/uL (1.8-7.7); NEUTROPHILS % (AUTO) 76.5 % (40.0-70.0); PLATELET COUNT (AUTO) 329 K/uL (130-430); RED BLOOD CELL COUNT(AUTO) 3.93 MIL/uL (4.2-6.2); RED CELL DISTRIBUTION WIDTH 13.6 % (9.0-15.0); WHITE BLOOD COUNT (AUTO) 16.3 K/uL (4.8-10.8)
[2023-06-17 06:10] LABS: CALCIUM 8.6 mg/dL (8.4-11.0); CREATININE 0.59 mg/dL (0.55-1.30); TOTAL BILIRUBIN 0.4 mg/dL (0.0-1.0); TOTAL PROTEIN, SERUM 6.8 g/dL (6.4-8.3)
[2023-06-17] MEDS: IPRATROPIUM/ALBUTEROL SULFATE 3 ML AMPUL.NEB (DUONEB) INH SCH ×2 (07:17→11:19)
[2023-06-17] MEDS: BICALUTAMIDE 50 MG TABLET PO SCH (09:02)
[2023-06-17] MEDS: CARVEDILOL 6.25 MG TABLET (COREG) PO SCH (09:03)
[2023-06-17] MEDS: CHOLECALCIFEROL (VITAMIN D3) 2,000 UNIT TABLET PO SCH (09:04)
[2023-06-17] MEDS: MULTIVITAMINS TAB 1 TABLET PO SCH (09:04)
[2023-06-17] MEDS: TAMSULOSIN HCL 0.4 MG CAP PO SCH (09:04)
[2023-06-17] MEDS: ASCORBIC ACID 500 MG TABLET PO SCH (09:04)
[2023-06-17] MEDS: SIMETHICONE 80 MG TAB.CHEW PO SCH (09:04)
[2023-06-17] MEDS: PANTOPRAZOLE SODIUM 40 MG/VIAL (PROTONIX) IVP SCH (09:10)
[2023-06-17] MEDS: INSULIN REGULAR, HUMAN 100 UNITS/ML, 3 ML VIAL (humuLIN R) SUBCUT PRN (11:41)
[2023-06-17] MEDS ORDERED: LINEZOLID 300 ML IV SCH (21:00)
== END 2023-06-17 14:10 | DRG 853 ==
LOC: SED 18:53 → STU 23:48 → SMU 06-16 17:08
PROVIDERS: ADMIT Internal Medicine; ATTEND Internal Medicine
PROC: 0Y6X0Z0 Detachment at Right 5th Toe, Complete, Open Approach (ICD-10-PCS; 2023-06-15)
PROC: 0Y6V0Z0 Detachment at Right 4th Toe, Complete, Open Approach (ICD-10-PCS; principal; 2023-06-15 12:58)
DX: A41.9 Sepsis, unspecified organism (principal); E43 Unspecified severe protein-calorie malnutrition; J96.21 Acute and chronic respiratory failure with hypoxia; J18.9 Pneumonia, unspecified organism; E87.1 Hypo-osmolality and hyponatremia; N39.0 Urinary tract infection, site not specified; E11.52 Type 2 diabetes mellitus with diabetic peripheral angiopathy with gangrene; L02.611 Cutaneous abscess of right foot; M84.477A Pathological fracture, right toe(s), initial encounter for fracture; I42.9 Cardiomyopathy, unspecified; I96 Gangrene, not elsewhere classified; C61 Malignant neoplasm of prostate; M81.0 Age-related osteoporosis without current pathological fracture; K21.9 Gastro-esophageal reflux disease without esophagitis; K52.9 Noninfective gastroenteritis and colitis, unspecified; K74.60 Unspecified cirrhosis of liver; Z20.822 Contact with and (suspected) exposure to COVID-19; E11.621 Type 2 diabetes mellitus with foot ulcer; I10 Essential (primary) hypertension; L97.519 Non-pressure chronic ulcer of other part of right foot with unspecified severity; Z79.899 Other long term (current) drug therapy; Z74.01 Bed confinement status; Z93.0 Tracheostomy status; Z93.1 Gastrostomy status; Z68.22 Body mass index [BMI] 22.0-22.9, adult
CPT/HCPCS: 36415; 36600; 71045; 76376; 80048; 80053; 80076; 81000; 81001; 81015; 82378; 82784; 82800-TC; 82803; 82962; 83605; 83690; 84153; 84155; 84156; 84165; 84403; 84484; 85025; 85610-TC; 85651-TC; 85730-TC; 87040; 87070-TC; 87075-TC; 87081; 87086; 88305; 93005; 94640; 94760; 96365; 96368; 97110-GP; 97530-GP; 99285; C9113; G0378; J0456; J0696; J1030; J1815; J2001; J2020; J2060; J2405; J2543; J2704; J2765; J3010; J3490; J7030; J7050

== ENCOUNTER 2023-09-13 14:15 | Emergency (ER) | payer OTHER, MEDICAID ==
[~2023-09-13] VITALS: Ht 193 cm; Wt 81.6 kg
[~2023-09-13 14:15] MED LIST changes: +ASCO500T20 PO; -CARV12.548 PO; -CEFE2FRO IV; +CHOL500013 PO; +FERROUS SUL PO; -FURO-149 PO; +MULT-976 PO; +ONDA4TAB55 PO; -SACU1TAB PO; +SIME80TA15 PO; -SPIR25TA6 PO; +TAMS0.4C96 PO; +TRAM50TA2 PO; +ZINC PO; +[UNRECOGNIZED DRUG - OTHER] PO
[2023-09-13 14:18] VITALS: BP_SYST 122; PULSE 94; RESP 22; TEMP 98.3; O2SAT 98
[2023-09-13 15:26] LABS: BASOPHILS % (AUTO) 0.2 % (0.0-2.0); EOSINOPHILS # (AUTO) 0.1 K/uL (0.0-0.4); EOSINOPHILS % (AUTO) 1.1 % (0.0-4.0); HEMATOCRIT 31.2 % (36-54); HEMOGLOBIN 10.7 g/dL (14.0-18.0); LYMPHOCYTES # (AUTO) 1.9 K/uL (1.0-5.5); LYMPHOCYTES % (AUTO) 14.4 % (20.5-51.5); MEAN CORPUSCULAR HEMOGLOBIN 29 pg (27-31); MEAN CORPUSCULAR HGB CONC 34 % (32-36); MEAN CORPUSCULAR VOLUME 84 fL (79.0-98.0); MONOCYTES # (AUTO) 1.1 K/uL (0.0-1.0); MONOCYTES % (AUTO) 8.7 % (1.7-9.3); NEUTROPHILS # (AUTO) 9.8 K/uL (1.8-7.7); NEUTROPHILS % (AUTO) 75.6 % (40.0-70.0); PLATELET COUNT (AUTO) 351 K/uL (130-430); RED CELL DISTRIBUTION WIDTH 16.2 % (9.0-15.0)
[2023-09-13 15:29] LABS: ANION GAP 6 (5-15); CALCIUM 8.4 mg/dL (8.4-11.0); CARBON DIOXIDE 28 mmol/L (23-29); CHLORIDE 98 mmol/L (98-107); CREATININE 0.66 mg/dL (0.55-1.30); GFR AFRICAN AMERICAN 155 mL/min (>90); GFR NON AFRICAN-AMERICAN 128 mL/min (>90); GLUCOSE 136 mg/dL (74-106); POTASSIUM 4.2 mmol/L (3.5-5.1); SODIUM SERUM 132 mmol/L (136-145); UREA NITROGEN, BLOOD 13 mg/dL (8-21)
[2023-09-13 15:32] LABS: INR 1.1 (0.80-1.20); PROTHROMBIN TIME 11.3 SECS (9.5-12.5)
[2023-09-13 16:03] LABS: ALANINE AMINOTRANSFERASE 10 U/L (12-78); ALBUMIN 2.1 g/dL (3.4-4.8); ASPARTATE AMINOTRANSFERASE 107 U/L (10-37); BILIRUBIN,DIRECT 0.1 mg/dL (0.0-0.3); TOTAL BILIRUBIN 0.2 mg/dL (0.0-1.0); TOTAL PROTEIN, SERUM 7.4 g/dL (6.4-8.3)
[2023-09-13] MEDS ORDERED: HYDR-3917 PO (16:12)
[2023-09-13 18:03] VITALS: O2SAT 95
[2023-09-13 18:04] VITALS: BP_SYST 137; PULSE 106; RESP 28; TEMP 97.7
== END 2023-09-13 17:31 ==
LOC: SED 14:15
DX: S42.341A Displaced spiral fracture of shaft of humerus, right arm, initial encounter for closed fracture (principal); J44.9 Chronic obstructive pulmonary disease, unspecified; E11.9 Type 2 diabetes mellitus without complications; I10 Essential (primary) hypertension; K21.9 Gastro-esophageal reflux disease without esophagitis; Z79.4 Long term (current) use of insulin; Z85.46 Personal history of malignant neoplasm of prostate; Z79.899 Other long term (current) drug therapy; W22.8XXA Striking against or struck by other objects, initial encounter; Y93.89 Activity, other specified; Y92.89 Other specified places as the place of occurrence of the external cause; Y99.8 Other external cause status
CPT/HCPCS: 36415; 73030; 73060; 80048; 80076; 82140; 83605; 84484; 85025; 85610; 85730; 99284

== ENCOUNTER 2023-09-15 14:40 | Inpatient (IN) | payer OTHER, MEDICAID ==
[~2023-09-15] VITALS: Ht 167.6 cm; Wt 71.7 kg
[~2023-09-15 14:40] MED LIST changes: +HYDR-3917 PO; +MIDAZOLAM HCL 2 MG/2 ML VIAL (VERSED) ONE
[2023-09-15 14:44] VITALS: BP_SYST 118; PULSE 104; RESP 18; TEMP 98.1; O2SAT 93
[2023-09-15] MEDS ORDERED: NALOXONE HCL 2 MG/2 ML SYR ONE (14:48)
[2023-09-15] MEDS: NALOXONE HCL 2 MG/2 ML SYR IVP ONE (14:54)
[2023-09-15] MEDS ORDERED: [UNRECOGNIZED DRUG - CODE] PO (15:13)
[2023-09-15] MEDS ORDERED: GUAI-1197 PO (15:13)
[2023-09-15] MEDS ORDERED: INSU100V7 SUBCUT (15:13)
[2023-09-15] MEDS ORDERED: METF-379 PO (15:13)
[2023-09-15] MEDS ORDERED: [UNRECOGNIZED DRUG - OTHER] IV (15:13)
[2023-09-15] MEDS ORDERED: ACET325T PO (15:13)
[2023-09-15] MEDS ORDERED: IPRA4AER INH (15:13)
[2023-09-15] MEDS ORDERED: MIRT-92 PO (15:13)
[2023-09-15] MEDS ORDERED: LOPE-178 PO (15:13)
[2023-09-15] MEDS ORDERED: LEUP7.5D4 IM (15:13)
[2023-09-15] MEDS ORDERED: SACC250C3 PO (15:13)
[2023-09-15] MEDS ORDERED: LORA-259 PO (15:13)
[2023-09-15 15:41] LABS: BASOPHILS # (AUTO) 0.1 K/uL (0.0-0.2); BASOPHILS % (AUTO) 0.4 % (0.0-2.0); HEMATOCRIT 31.1 % (36-54); HEMOGLOBIN 10.5 g/dL (14.0-18.0); LYMPHOCYTES # (AUTO) 2.1 K/uL (1.0-5.5); LYMPHOCYTES % (AUTO) 12.8 % (20.5-51.5); MEAN CORPUSCULAR HEMOGLOBIN 29 pg (27-31); MEAN CORPUSCULAR HGB CONC 34 % (32-36); MEAN CORPUSCULAR VOLUME 85 fL (79.0-98.0); MONOCYTES # (AUTO) 1.6 K/uL (0.0-1.0); MONOCYTES % (AUTO) 9.6 % (1.7-9.3); NEUTROPHILS # (AUTO) 12.7 K/uL (1.8-7.7); NEUTROPHILS % (AUTO) 77.2 % (40.0-70.0); PLATELET COUNT (AUTO) 342 K/uL (130-430); RED BLOOD CELL COUNT(AUTO) 3.65 MIL/uL (4.2-6.2); RED CELL DISTRIBUTION WIDTH 16.3 % (9.0-15.0); WHITE BLOOD COUNT (AUTO) 16.4 K/uL (4.8-10.8)
[2023-09-15 15:51] LABS: ANION GAP 8 (5-15); CALCIUM 8.6 mg/dL (8.4-11.0); CARBON DIOXIDE 28 mmol/L (23-29); CHLORIDE 105 mmol/L (98-107); CREATININE 1.01 mg/dL (0.55-1.30); GFR AFRICAN AMERICAN 95 mL/min (>90); GLUCOSE 138 mg/dL (74-106); POTASSIUM 3.4 mmol/L (3.5-5.1); SODIUM SERUM 141 mmol/L (136-145); UREA NITROGEN, BLOOD 26 mg/dL (8-21)
[2023-09-15] MEDS: NACL 0.9% 1,000 ML IV ONE (15:52)
[2023-09-15 15:53] LABS: GFR NON AFRICAN-AMERICAN 79 mL/min (>90)
[2023-09-15 15:54] LABS: INR 1.2 (0.80-1.20); PROTHROMBIN TIME 12.8 SECS (9.5-12.5)
[2023-09-15 15:57] LABS: BILIRUBIN,URINE NEGATIVE (NEGATIVE); BLOOD, URINE NEGATIVE (NEGATIVE); CLARITY/URINE CLEAR (CLEAR); COLOR,URINE YELLOW (YELLOW); GLUCOSE,URINE NEGATIVE (NEGATIVE); KETONES,URINE NEGATIVE (NEGATIVE); LEUKOCYTE ESTERASE ,URINE TRACE (NEGATIVE); NITRITE, URINE NEGATIVE (NEGATIVE); PROTEIN URINE NEGATIVE (NEGATIVE); UROBILINOGEN,URINE 0.2 (0.2-1.0)
[2023-09-15 16:24] LABS: ACETAMINOPHEN < 1 ug/mL (1-30); ALANINE AMINOTRANSFERASE 11 U/L (12-78); ALCOHOL, BLOOD < 3 mg/dL (<10); ASPARTATE AMINOTRANSFERASE 48 U/L (10-37); BILIRUBIN,DIRECT 0.2 mg/dL (0.0-0.3); CREATINE KINASE, TOTAL 329 U/L (39-308); SALICYLATE 1 mg/dL (3-30); TOTAL BILIRUBIN 0.4 mg/dL (0.0-1.0); TOTAL PROTEIN, SERUM 7.6 g/dL (6.4-8.3)
[2023-09-15 16:25] LABS: BARBITURATE, URINE NEGATIVE (NEG <=200); BENZODIAZEPINE, URINE NEGATIVE (NEG <=150); METHAMPHETAMINES SCREEN,URINE NEGATIVE (NEG <=500); URINE AMPHETAMINE NEGATIVE (NEG <=500); URINE METHADONE NEGATIVE (NEG <=200)
[2023-09-15 16:26] LABS: CANNABINOID, URINE NEGATIVE (NEG <=50); COCAINE, URINE NEGATIVE (NEG <=150); OPIATE, URINE NEGATIVE (NEG <=100); PHENCYCLIDINE SCREEN,URINE NEGATIVE (NEG <=25); UR TRICYCLIC ANTIDEPRESSANTS NEGATIVE (NEG <=300); URINE OXYCODONE SCREEN NEGATIVE (NEG <=100)
[2023-09-15 16:38] LABS: BACTERIA,URINE FEW /HPF (None Seen); COARSE GRANULAR CASTS,URINE 0-10 /LPF (None Seen); MUCUS,URINE None Seen /LPF (None Seen); RBC,URINE NONE SEEN /HPF (0-3)
[2023-09-15] MEDS ORDERED: KCL 40 mEq in 100 mL (PREMIX) 100 ML IV ONE (17:00)
[2023-09-15] MEDS ORDERED: DEXTROSE 50% JECT 50 ML DISP.SYRIN IVP PRN (17:00)
[2023-09-15] MEDS ORDERED: NALOXONE HCL 0.4 MG/ML AMP (NARCAN) IVP PRN (17:00)
[2023-09-15] MEDS: D5LR 1,000 ML IV SCH (17:25)
[2023-09-15] MEDS: METHYLPREDNISOLONE SOD SUCC 40 MG/ML VIAL IVP ONE (17:30)
[2023-09-15 17:41] LABS: CREATINE KINASE MB 0.1 ng/mL (0-3.6)
[2023-09-15 17:44] VITALS: BP_SYST 115; PULSE 98; O2SAT 93
[2023-09-15] MEDS: IPRATROPIUM/ALBUTEROL SULFATE 3 ML AMPUL.NEB (DUONEB) INH ONE (17:56)
[2023-09-15] MEDS ORDERED: PIPERACILLIN/TAZO 4.5GM/DEX-IS 100 ML IV SCH (18:00)
[2023-09-15 18:01] LABS: ACETONE, SERUM NEGATIVE (NEGATIVE)
[2023-09-15] MEDS ORDERED: PIPERACILLIN/TAZOBACTAM 4.5 GM/VIAL (ZOSYN) IV ONE (18:06)
[2023-09-15 18:07] VITALS: O2SAT 94
[2023-09-15] MEDS: PIPERACILLIN/TAZO 4.5GM/DEX-IS 100 ML IV ONE (18:13)
[2023-09-15] MEDS ORDERED: LORazepam 2 MG/ML VIAL IVP PRN (18:15)
[2023-09-15] MEDS: POTASSIUM CHLORIDE 40 MEQ in NS 250 ML IV ONE (18:41)
[2023-09-15 19:50] LABS: INFLUENZA TYPE A Negative (NEGATIVE); INFLUENZA TYPE B NEGATIVE (NEGATIVE)
[2023-09-15] MEDS: IPRATROPIUM/ALBUTEROL SULFATE 3 ML AMPUL.NEB (DUONEB) INH SCH (20:09)
[2023-09-15] MEDS ORDERED: AZITHROMYCIN 500 MG/VIAL (ZITHROMAX) IV ONE (20:49)
[2023-09-15] MEDS ORDERED: INSULIN REGULAR, HUMAN 10 UNITS/0.1 ML, 3 ML VIAL ONE (21:46)
[2023-09-15] MEDS: ENOXAPARIN SODIUM 40 MG/0.4 ML SYRINGE SUBCUT SCH (21:51)
[2023-09-15] MEDS: INSULIN REGULAR, HUMAN 100 UNITS/ML, 3 ML VIAL (humuLIN R) SUBCUT PRN (21:52)
[2023-09-15] MEDS: METHYLPREDNISOLONE SOD SUCC 40 MG/ML VIAL IVP SCH (23:20)
[2023-09-15] MEDS: AZITHROMYCIN 500 MG in NS 250 ML IV SCH (23:24)
[2023-09-15 23:35] VITALS: O2SAT 96
[2023-09-16] VITALS (10 sets, daily range): BP systolic 121–143; PULSE 84–121; RESP 16–19; TEMP 97.7–98.6; O2SAT 94–97
[2023-09-16] MEDS: PIPERACILLIN/TAZO 4.5 GM in D5W 100 ML IV SCH (06:22)
[2023-09-16] MEDS ORDERED: METHYLPREDNISOLONE SOD SUCC 40 MG/ML VIAL ONE (06:58)
[2023-09-16 08:05] LABS: BASOPHILS % (AUTO) 0.1 % (0.0-2.0); HEMATOCRIT 31.4 % (36-54); HEMOGLOBIN 10.5 g/dL (14.0-18.0); LYMPHOCYTES # (AUTO) 1.2 K/uL (1.0-5.5); LYMPHOCYTES % (AUTO) 8.8 % (20.5-51.5); MEAN CORPUSCULAR HEMOGLOBIN 29 pg (27-31); MEAN CORPUSCULAR HGB CONC 33 % (32-36); MEAN CORPUSCULAR VOLUME 87 fL (79.0-98.0); MONOCYTES # (AUTO) 0.3 K/uL (0.0-1.0); MONOCYTES % (AUTO) 2.1 % (1.7-9.3); NEUTROPHILS # (AUTO) 11.9 K/uL (1.8-7.7); PLATELET COUNT (AUTO) 349 K/uL (130-430); RED BLOOD CELL COUNT(AUTO) 3.61 MIL/uL (4.2-6.2); RED CELL DISTRIBUTION WIDTH 15.8 % (9.0-15.0); WHITE BLOOD COUNT (AUTO) 13.4 K/uL (4.8-10.8)
[2023-09-16 08:32] LABS: ALBUMIN 1.9 g/dL (3.4-4.8); CALCIUM 9.6 mg/dL (8.4-11.0); CREATININE 0.74 mg/dL (0.55-1.30); POTASSIUM 4.1 mmol/L (3.5-5.1); TOTAL BILIRUBIN 0.4 mg/dL (0.0-1.0); TOTAL PROTEIN, SERUM 7.6 g/dL (6.4-8.3)
[2023-09-16] MEDS: MORPHINE 2 MG/ML INJ. SYRINGE IVP PRN (12:43)
[2023-09-16] MEDS: ACETAMINOPHEN 325 MG TABLET PO PRN (15:48)
[2023-09-16] MEDS: HYDROcodone/ACETAMIN 5-325 MG TAB (NORCO/ VICODIN) PO PRN (21:10)
[2023-09-16 21:38] LABS: INR 1.2 (0.80-1.20); PROTHROMBIN TIME 12.3 SECS (9.5-12.5)
[2023-09-17] VITALS (7 sets, daily range): BP systolic 122–157; PULSE 116–147; RESP 16–18; TEMP 96.7–97.9; O2SAT 93–96
[2023-09-17 05:11] LABS: BASOPHILS % (AUTO) 0.1 % (0.0-2.0); HEMATOCRIT 33.6 % (36-54); HEMOGLOBIN 11.3 g/dL (14.0-18.0); LYMPHOCYTES # (AUTO) 1.1 K/uL (1.0-5.5); LYMPHOCYTES % (AUTO) 6.5 % (20.5-51.5); MEAN CORPUSCULAR HEMOGLOBIN 29 pg (27-31); MEAN CORPUSCULAR HGB CONC 34 % (32-36); MEAN CORPUSCULAR VOLUME 85 fL (79.0-98.0); MONOCYTES # (AUTO) 0.6 K/uL (0.0-1.0); MONOCYTES % (AUTO) 3.7 % (1.7-9.3); NEUTROPHILS # (AUTO) 14.8 K/uL (1.8-7.7); NEUTROPHILS % (AUTO) 89.7 % (40.0-70.0); PLATELET COUNT (AUTO) 358 K/uL (130-430); RED BLOOD CELL COUNT(AUTO) 3.96 MIL/uL (4.2-6.2); RED CELL DISTRIBUTION WIDTH 15.6 % (9.0-15.0); WHITE BLOOD COUNT (AUTO) 16.5 K/uL (4.8-10.8)
[2023-09-17 05:52] LABS: CALCIUM 9.6 mg/dL (8.4-11.0); CREATININE 0.69 mg/dL (0.55-1.30); POTASSIUM 4.2 mmol/L (3.5-5.1); TOTAL BILIRUBIN 0.5 mg/dL (0.0-1.0); TOTAL PROTEIN, SERUM 7.8 g/dL (6.4-8.3)
[2023-09-17] MEDS: METOPROLOL TARTRATE 50 MG TABLET PO ONE (13:31)
[2023-09-17] MEDS ORDERED: CAS50 PO (14:58)
[2023-09-17] MEDS ORDERED: PRO40 PO (14:58)
[2023-09-17] MEDS ORDERED: IPRA3AMP9 INH (14:58)
[2023-09-17] MEDS ORDERED: INSU100V53 PO (14:58)
[2023-09-17] MEDS ORDERED: ENOX40DI8 SQ (14:58)
[2023-09-17] MEDS ORDERED: HYDR-3917 PO (14:58)
[2023-09-17] MEDS ORDERED: FERR-69 PO (14:58)
[2023-09-17] MEDS ORDERED: ARIP5TAB10 PO (14:58)
[2023-09-17] MEDS ORDERED: [UNRECOGNIZED DRUG - CODE] IV (14:58)
[2023-09-17] MEDS: METOPROLOL TARTRATE 5 MG/5 ML VIAL IVP ONE (15:35)
[2023-09-17] MEDS: BALSAM PERU/CASTOR OIL 56.7 GM OINT...G. TP ONE (16:00)
[2023-09-17] MEDS: ACETAMINOPHEN 500 MG TABLET PO PRN (16:08)
[2023-09-17] MEDS: METHYLPREDNISOLONE SOD SUCC 40 MG/ML VIAL IVP SCH (17:49)
[2023-09-17] MEDS ORDERED: KETOROLAC TROMETHAMINE 15 MG VIAL IVP PRN (18:45)
[2023-09-17] MEDS: VANCOMYCIN HCL 1,000 MG in NS 250 ML IV SCH (20:40)
[2023-09-17] MEDS: NACL 0.9% 1,000 ML IV SCH (20:40)
[2023-09-17] MEDS: FAMOTIDINE PF 20 MG/2 ML VIAL IVP SCH (20:43)
[2023-09-17] MEDS: METOPROLOL TARTRATE 50 MG TABLET PO SCH (20:44)
[2023-09-17] MEDS: CEFEPIME 2 GM in D5W 100 ML IV SCH (22:48)
[2023-09-18] VITALS (25 sets, daily range): BP systolic 87–128; PULSE 109–156; RESP 18–39; TEMP 97.7–103.7; O2SAT 84–100
[2023-09-18] MEDS: METOPROLOL TARTRATE 5 MG/5 ML VIAL IVP ONE (06:54)
[2023-09-18 08:07] LABS: ALBUMIN 1.2 g/dL (3.4-4.8); CREATININE 0.3 mg/dL (0.55-1.30); TOTAL BILIRUBIN 0.3 mg/dL (0.0-1.0); TOTAL PROTEIN, SERUM 4.4 g/dL (6.4-8.3)
[2023-09-18 08:12] LABS: POTASSIUM 2.6 mmol/L (3.5-5.1)
[2023-09-18 08:23] LABS: CALCIUM 5.8 mg/dL (8.4-11.0)
[2023-09-18] MEDS: BALSAM PERU/CASTOR OIL 56.7 GM OINT...G. TP SCH (09:08)
[2023-09-18] MEDS: dilTIAZem HCL IVP 5 MG/ML VIAL IVP ONE ×2 (10:56→12:48)
[2023-09-18] MEDS: DILTIAZEM HCL 30 MG TABLET PO SCH (11:39)
[2023-09-18] MEDS: ALBUMIN HUMAN 25% 50 ML IV SCH (12:05)
[2023-09-18] MEDS ORDERED: ACETAMINOPHEN 650 MG SUPP.RECT RC PRN ×2 (12:15)
[2023-09-18 14:14] LABS: ABG O2 SAT% ESTIMATE 94.3 % (94.0-100.0); BLOOD GAS BASE EXCESS -3.3 mmol/L (-3.0-3.0); BLOOD GAS PCO2 20.3 mmHg (32.0-45.0); BLOOD GAS PO2 60.7 mmHg (75.0-100.0)
[2023-09-18] MEDS ORDERED: CALCIUM CHLORIDE 1 GM in NS 100 ML IV ONE (14:15)
[2023-09-18] MEDS ORDERED: KCL 40 mEq in 100 mL (PREMIX) 100 ML IV ONE (14:15)
[2023-09-18 14:18] LABS: BLOOD GAS HCO3 16.7 mmol/L (21.0-27.0); BLOOD GAS PH 7.534 (7.350-7.450)
[2023-09-18] MEDS: NOREPINEPHR 8 MG/250 mL NS 250 ML IV PRN (15:42)
[2023-09-18] MEDS ORDERED: VECURONIUM BROMIDE 10 MG/VIAL (NORCURON) ONE (15:45)
[2023-09-18] MEDS: PROPOFOL DRIP 100 ML IV PRN (17:29)
[2023-09-18 17:35] LABS: BLOOD GAS HCO3 18.1 mmol/L (21.0-27.0); BLOOD GAS PCO2 41.7 mmHg (32.0-45.0)
[2023-09-18] MEDS: CALCIUM CHLORIDE 1 GM in NS 100 ML IV ONE (17:37)
[2023-09-18 17:40] LABS: ABG O2 SAT% ESTIMATE 85.2 % (94.0-100.0); BLOOD GAS BASE EXCESS -8.6 mmol/L (-3.0-3.0); BLOOD GAS PH 7.255 (7.350-7.450); BLOOD GAS PO2 56.8 mmHg (75.0-100.0)
[2023-09-18] MEDS: POTASSIUM CHLORIDE 40 MEQ in NS 250 ML IV ONE (17:51)
[2023-09-19] VITALS (54 sets, daily range): BP systolic 59–166; PULSE 95–132; RESP 21–35; TEMP 97.8–104.2; O2SAT 66–100
[2023-09-19] MEDS: MORPHINE 4 MG INJ. 4 MG/ML VIAL IVP ONE (02:15)
[2023-09-19] MEDS ORDERED: MORPHINE 4 MG INJ. 4 MG/ML VIAL IVP PRN (02:15)
[2023-09-19] MEDS ORDERED: VASOPRESSIN 40 UNITS in NS 38 ML IV PRN (05:30)
[2023-09-19 05:40] LABS: HEMATOCRIT 31.2 % (36-54); HEMOGLOBIN 10.2 g/dL (14.0-18.0); MEAN CORPUSCULAR HEMOGLOBIN 29 pg (27-31); MEAN CORPUSCULAR HGB CONC 33 % (32-36); MEAN CORPUSCULAR VOLUME 88 fL (79.0-98.0); PLATELET COUNT (AUTO) 109 K/uL (130-430); RED BLOOD CELL COUNT(AUTO) 3.55 MIL/uL (4.2-6.2); RED CELL DISTRIBUTION WIDTH 16.8 % (9.0-15.0); WHITE BLOOD COUNT (AUTO) 20.9 K/uL (4.8-10.8)
[2023-09-19] MEDS: PIPERACILLIN/TAZO 3.375 GM in D5W 50 ML IV SCH (06:00)
[2023-09-19 06:08] LABS: INR 1.6 (0.80-1.20); PROTHROMBIN TIME 16.1 SECS (9.5-12.5)
[2023-09-19 06:13] LABS: CREATININE 2.16 mg/dL (0.55-1.30); POTASSIUM 4.2 mmol/L (3.5-5.1); TOTAL BILIRUBIN 0.9 mg/dL (0.0-1.0); TOTAL PROTEIN, SERUM 4.9 g/dL (6.4-8.3)
[2023-09-19 06:33] LABS: CALCIUM 6.3 mg/dL (8.4-11.0)
[2023-09-19] MEDS: NOREPINEPHRINE BITARTRATE 16 MG in NS 234 ML IV PRN (08:12)
[2023-09-19 08:54] LABS: BLOOD GAS BASE EXCESS -13.8 mmol/L (-3.0-3.0); BLOOD GAS PCO2 26.4 mmHg (32.0-45.0); BLOOD GAS PO2 171.6 mmHg (75.0-100.0)
[2023-09-19 08:59] LABS: BLOOD GAS HCO3 11.5 mmol/L (21.0-27.0); BLOOD GAS PH 7.258 (7.350-7.450)
[2023-09-19] MEDS ORDERED: CALCIUM CHLORIDE 1 GM/10ML VIAL (13.6 mEq Ca++/VIAL) IV ONE (09:00)
[2023-09-19] MEDS ORDERED: MAGNESIUM SULFATE 4 GM in D5W 250 ML IV ONE (10:30)
[2023-09-19] MEDS: CALCIUM CHLORIDE 1 GM in NS 100 ML IV ONE ×2 (10:33→13:02)
[2023-09-19 10:51] LABS: BAND % (MANUAL) 11 % (0-6); BASOPHILS % (MANUAL) 0 % (0-2); EOSINOPHILS % (MANUAL) 0 % (0-7); LYMPHOCYTES % (MANUAL) 14 % (20-46); METAMYELOCYTES % 2 % (0-0); MONOCYTES % (MANUAL) 14 % (0-11); PLATELET ESTIMATE ADEQUATE (ADEQUATE)
[2023-09-19] MEDS ORDERED: CALCIUM CHLORIDE 1 GM in NS 100 ML IV ONE (11:00)
[2023-09-19] MEDS: MAGNESIUM SULFATE IN WATER 100 ML IV ONE (11:41)
[2023-09-19] MEDS: NOREPINEPHR 16 MG/250 mL NS 250 ML IV PRN (15:12)
[2023-09-20] VITALS (38 sets, daily range): BP systolic 88–137; PULSE 99–129; RESP 14–40; TEMP 101.8–103.5; O2SAT 97–100
[2023-09-20 09:39] LABS: BASOPHILS # (AUTO) 0.1 K/uL (0.0-0.2); BASOPHILS % (AUTO) 0.2 % (0.0-2.0); HEMATOCRIT 33.7 % (36-54); LYMPHOCYTES # (AUTO) 0.8 K/uL (1.0-5.5); MEAN CORPUSCULAR HEMOGLOBIN 28 pg (27-31); MEAN CORPUSCULAR HGB CONC 33 % (32-36); MEAN CORPUSCULAR VOLUME 87 fL (79.0-98.0); MONOCYTES # (AUTO) 0.6 K/uL (0.0-1.0); NEUTROPHILS # (AUTO) 27.1 K/uL (1.8-7.7); PLATELET COUNT (AUTO) 59 K/uL (130-430); RED BLOOD CELL COUNT(AUTO) 3.86 MIL/uL (4.2-6.2); RED CELL DISTRIBUTION WIDTH 16.2 % (9.0-15.0); WHITE BLOOD COUNT (AUTO) 28.6 K/uL (4.8-10.8)
[2023-09-20 09:48] LABS: NEUTROPHILS % (AUTO) 94.8 % (40.0-70.0)
[2023-09-20 10:00] LABS: ALBUMIN 1.8 g/dL (3.4-4.8); CALCIUM 7.5 mg/dL (8.4-11.0); CREATININE 3.3 mg/dL (0.55-1.30); PHOSPHORUS 6.9 mg/dL (2.7-4.5); TOTAL BILIRUBIN 0.8 mg/dL (0.0-1.0); TOTAL PROTEIN, SERUM 5.7 g/dL (6.4-8.3)
[2023-09-20 10:12] LABS: POTASSIUM 6.2 mmol/L (3.5-5.1)
[2023-09-20] MEDS: INSULIN REGULAR, HUMAN 100 UNITS/ML, 3 ML VIAL SUBCUT ONE (12:22)
[2023-09-20] MEDS: SODIUM POLYSTYRENE SULFONATE 15 GM/60 ML UDBTL NG ONE (13:27)
[2023-09-20] MEDS: CALCIUM CHLORIDE 1 GM in NS 100 ML IV ONE (13:29)
[2023-09-20] MEDS: INSULIN GLARGINE 100 UNITS/ML, 10 ML VIAL SUBCUT SCH (21:59)
[2023-09-21] VITALS (57 sets, daily range): BP systolic 89–146; PULSE 87–109; RESP 22–33; TEMP 98.8–101.7; O2SAT 97–100
[2023-09-21 06:59] LABS: ALBUMIN 1.6 g/dL (3.4-4.8); CALCIUM 7.7 mg/dL (8.4-11.0); CREATININE 3.64 mg/dL (0.55-1.30); PHOSPHORUS 6.9 mg/dL (2.7-4.5); POTASSIUM 5.6 mmol/L (3.5-5.1); TOTAL BILIRUBIN 0.6 mg/dL (0.0-1.0); TOTAL PROTEIN, SERUM 5.1 g/dL (6.4-8.3)
[2023-09-21 08:06] LABS: % FREE PSA >6.1 % (.); FREE PSA >50.00 ng/mL
[2023-09-21 08:07] LABS: BASOPHILS # (AUTO) 0.1 K/uL (0.0-0.2); BASOPHILS % (AUTO) 0.6 % (0.0-2.0); HEMATOCRIT 29.5 % (36-54); HEMOGLOBIN 9.6 g/dL (14.0-18.0); LYMPHOCYTES # (AUTO) 0.7 K/uL (1.0-5.5); LYMPHOCYTES % (AUTO) 3.2 % (20.5-51.5); MEAN CORPUSCULAR HEMOGLOBIN 28 pg (27-31); MEAN CORPUSCULAR HGB CONC 32 % (32-36); MEAN CORPUSCULAR VOLUME 88 fL (79.0-98.0); MONOCYTES # (AUTO) 0.4 K/uL (0.0-1.0); NEUTROPHILS # (AUTO) 21.5 K/uL (1.8-7.7); NEUTROPHILS % (AUTO) 94.2 % (40.0-70.0); RED BLOOD CELL COUNT(AUTO) 3.36 MIL/uL (4.2-6.2); RED CELL DISTRIBUTION WIDTH 16.5 % (9.0-15.0)
[2023-09-21 08:11] LABS: WHITE BLOOD COUNT (AUTO) 22.8 K/uL (4.8-10.8)
[2023-09-21] MEDS: INSULIN GLARGINE 100 UNITS/ML, 10 ML VIAL SUBCUT SCH (08:25)
[2023-09-21] MEDS: ALBUMIN HUMAN 25% 50 ML IV SCH (10:15)
[2023-09-21 12:20] LABS: PLATELET COUNT (AUTO) 50 K/uL (130-430)
[2023-09-21] MEDS: methylPREDNISolone SOD SUCC/PF 62.5 MG/ML VIAL IVP ONE (18:04)
[2023-09-21] MEDS: methylPREDNISolone SOD SUCC/PF 62.5 MG/ML VIAL IVP SCH (23:19)
[2023-09-22] VITALS (36 sets, daily range): BP systolic 90–141; PULSE 95–111; RESP 25–34; TEMP 98.5–99.7; O2SAT 94–99
[2023-09-22 06:21] LABS: HEMATOCRIT 27.5 % (36-54); HEMOGLOBIN 8.9 g/dL (14.0-18.0); MEAN CORPUSCULAR HEMOGLOBIN 29 pg (27-31); MEAN CORPUSCULAR HGB CONC 32 % (32-36); MEAN CORPUSCULAR VOLUME 88 fL (79.0-98.0); PLATELET COUNT (AUTO) 67 K/uL (130-430); RED BLOOD CELL COUNT(AUTO) 3.12 MIL/uL (4.2-6.2); RED CELL DISTRIBUTION WIDTH 16.5 % (9.0-15.0); WHITE BLOOD COUNT (AUTO) 23.4 K/uL (4.8-10.8)
[2023-09-22 06:23] LABS: INR 1.1 (0.80-1.20); PROTHROMBIN TIME 10.9 SECS (9.5-12.5)
[2023-09-22 06:37] LABS: ALBUMIN 2.3 g/dL (3.4-4.8); CALCIUM 8.3 mg/dL (8.4-11.0); CREATININE 3.86 mg/dL (0.55-1.30); POTASSIUM 5.3 mmol/L (3.5-5.1); TOTAL BILIRUBIN 0.8 mg/dL (0.0-1.0); TOTAL PROTEIN, SERUM 5.3 g/dL (6.4-8.3)
[2023-09-22 08:08] LABS: ANISOCYTOSIS 1+; BAND % (MANUAL) 8 % (0-6); BASOPHILS % (MANUAL) 0 % (0-2); EOSINOPHILS % (MANUAL) 0 % (0-7); LYMPHOCYTES % (MANUAL) 5 % (20-46); METAMYELOCYTES % 1 % (0-0); MONOCYTES % (MANUAL) 2 % (0-11); PLATELET ESTIMATE DECREASED (ADEQUATE); TEAR DROP CELLS FEW
[2023-09-22] MEDS: LINEZOLID 300 ML IV SCH (21:43)
[2023-09-22] MEDS: MEROPENEM 500 MG in NS 50 ML IV SCH (22:29)
[2023-09-23] VITALS (38 sets, daily range): BP systolic 94–144; PULSE 100–114; RESP 10–29; TEMP 97–99.8; O2SAT 94–99
[2023-09-23 06:39] LABS: BASOPHILS # (AUTO) 0.1 K/uL (0.0-0.2); BASOPHILS % (AUTO) 0.9 % (0.0-2.0); HEMATOCRIT 25.5 % (36-54); HEMOGLOBIN 8.3 g/dL (14.0-18.0); LYMPHOCYTES # (AUTO) 0.2 K/uL (1.0-5.5); LYMPHOCYTES % (AUTO) 1.2 % (20.5-51.5); MEAN CORPUSCULAR HEMOGLOBIN 29 pg (27-31); MEAN CORPUSCULAR HGB CONC 32 % (32-36); MEAN CORPUSCULAR VOLUME 88 fL (79.0-98.0); MONOCYTES # (AUTO) 0.4 K/uL (0.0-1.0); MONOCYTES % (AUTO) 3.1 % (1.7-9.3); NEUTROPHILS # (AUTO) 13.4 K/uL (1.8-7.7); NEUTROPHILS % (AUTO) 94.8 % (40.0-70.0); PLATELET COUNT (AUTO) 92 K/uL (130-430); RED CELL DISTRIBUTION WIDTH 16.6 % (9.0-15.0); WHITE BLOOD COUNT (AUTO) 14.1 K/uL (4.8-10.8)
[2023-09-23 07:07] LABS: CALCIUM 8.1 mg/dL (8.4-11.0); CREATININE 4.29 mg/dL (0.55-1.30); POTASSIUM 5.2 mmol/L (3.5-5.1); TOTAL BILIRUBIN 0.6 mg/dL (0.0-1.0); TOTAL PROTEIN, SERUM 5.4 g/dL (6.4-8.3)
[2023-09-24] VITALS (33 sets, daily range): BP systolic 102–125; PULSE 85–100; RESP 9–29; TEMP 97.6–99.2; O2SAT 96–100
[2023-09-24 06:00] LABS: BASOPHILS # (AUTO) 0.1 K/uL (0.0-0.2); BASOPHILS % (AUTO) 0.9 % (0.0-2.0); HEMATOCRIT 27.9 % (36-54); LYMPHOCYTES # (AUTO) 0.1 K/uL (1.0-5.5); LYMPHOCYTES % (AUTO) 0.9 % (20.5-51.5); MEAN CORPUSCULAR HEMOGLOBIN 28 pg (27-31); MEAN CORPUSCULAR HGB CONC 32 % (32-36); MEAN CORPUSCULAR VOLUME 88 fL (79.0-98.0); MONOCYTES # (AUTO) 0.4 K/uL (0.0-1.0); MONOCYTES % (AUTO) 2.2 % (1.7-9.3); NEUTROPHILS # (AUTO) 15.1 K/uL (1.8-7.7); PLATELET COUNT (AUTO) 114 K/uL (130-430); RED BLOOD CELL COUNT(AUTO) 3.16 MIL/uL (4.2-6.2); RED CELL DISTRIBUTION WIDTH 16.7 % (9.0-15.0); WHITE BLOOD COUNT (AUTO) 15.8 K/uL (4.8-10.8)
[2023-09-24 06:13] LABS: ALBUMIN 1.9 g/dL (3.4-4.8); CREATININE 4.41 mg/dL (0.55-1.30); POTASSIUM 4.9 mmol/L (3.5-5.1); TOTAL BILIRUBIN 0.5 mg/dL (0.0-1.0)
[2023-09-24] MEDS: METHYLPREDNISOLONE SOD SUCC 40 MG/ML VIAL IVP SCH (21:35)
[2023-09-25] VITALS (32 sets, daily range): BP systolic 91–109; PULSE 86–105; RESP 10–30; TEMP 97.4–98.7; O2SAT 98–100
[2023-09-25 04:42] LABS: BASOPHILS # (AUTO) 0.1 K/uL (0.0-0.2); BASOPHILS % (AUTO) 0.8 % (0.0-2.0); HEMATOCRIT 26.6 % (36-54); HEMOGLOBIN 8.6 g/dL (14.0-18.0); LYMPHOCYTES # (AUTO) 0.1 K/uL (1.0-5.5); LYMPHOCYTES % (AUTO) 0.6 % (20.5-51.5); MEAN CORPUSCULAR HEMOGLOBIN 29 pg (27-31); MEAN CORPUSCULAR HGB CONC 33 % (32-36); MEAN CORPUSCULAR VOLUME 88 fL (79.0-98.0); MONOCYTES # (AUTO) 0.3 K/uL (0.0-1.0); MONOCYTES % (AUTO) 2.3 % (1.7-9.3); NEUTROPHILS # (AUTO) 14.8 K/uL (1.8-7.7); NEUTROPHILS % (AUTO) 96.3 % (40.0-70.0); PLATELET COUNT (AUTO) 147 K/uL (130-430); RED BLOOD CELL COUNT(AUTO) 3.01 MIL/uL (4.2-6.2); RED CELL DISTRIBUTION WIDTH 17.1 % (9.0-15.0); WHITE BLOOD COUNT (AUTO) 15.4 K/uL (4.8-10.8)
[2023-09-25 05:20] LABS: ALBUMIN 1.8 g/dL (3.4-4.8); CALCIUM 7.9 mg/dL (8.4-11.0); CREATININE 4.56 mg/dL (0.55-1.30); POTASSIUM 4.5 mmol/L (3.5-5.1); TOTAL BILIRUBIN 0.4 mg/dL (0.0-1.0); TOTAL PROTEIN, SERUM 4.7 g/dL (6.4-8.3)
[2023-09-25] MEDS: BUMEX 1 MG/4 ML VIAL IVP ONE (15:36)
[2023-09-25] MEDS: FUROSEMIDE 100 MG in D5W 90 ML IV SCH (15:46)
[2023-09-26] VITALS (32 sets, daily range): BP systolic 93–120; PULSE 71–108; RESP 13–27; TEMP 97–98; O2SAT 97–100
[2023-09-26 04:48] LABS: ALBUMIN 1.7 g/dL (3.4-4.8); CALCIUM 7.4 mg/dL (8.4-11.0); CREATININE 4.64 mg/dL (0.55-1.30); PHOSPHORUS 10.4 mg/dL (2.7-4.5); POTASSIUM 4.6 mmol/L (3.5-5.1); TOTAL BILIRUBIN 0.4 mg/dL (0.0-1.0); TOTAL PROTEIN, SERUM 4.6 g/dL (6.4-8.3)
[2023-09-26 04:50] LABS: BASOPHILS # (AUTO) 0.1 K/uL (0.0-0.2); BASOPHILS % (AUTO) 0.8 % (0.0-2.0); HEMATOCRIT 26.1 % (36-54); HEMOGLOBIN 8.4 g/dL (14.0-18.0); LYMPHOCYTES # (AUTO) 0.1 K/uL (1.0-5.5); LYMPHOCYTES % (AUTO) 0.8 % (20.5-51.5); MEAN CORPUSCULAR HEMOGLOBIN 29 pg (27-31); MEAN CORPUSCULAR HGB CONC 32 % (32-36); MEAN CORPUSCULAR VOLUME 89 fL (79.0-98.0); MONOCYTES # (AUTO) 0.1 K/uL (0.0-1.0); MONOCYTES % (AUTO) 0.5 % (1.7-9.3); NEUTROPHILS % (AUTO) 97.9 % (40.0-70.0); PLATELET COUNT (AUTO) 182 K/uL (130-430); RED BLOOD CELL COUNT(AUTO) 2.93 MIL/uL (4.2-6.2); RED CELL DISTRIBUTION WIDTH 17.2 % (9.0-15.0); WHITE BLOOD COUNT (AUTO) 15.4 K/uL (4.8-10.8)
[2023-09-26] MEDS: HEPARIN SODIUM, PORCINE 10,000 UNITS/ 10 ML VIAL MC ONE (12:59)
[2023-09-27] VITALS (41 sets, daily range): BP systolic 84–149; PULSE 86–108; RESP 9–25; TEMP 96.1–98.2; O2SAT 96–100
[2023-09-27 05:46] LABS: ALBUMIN 1.6 g/dL (3.4-4.8); CALCIUM 7.6 mg/dL (8.4-11.0); CREATININE 4.09 mg/dL (0.55-1.30); PHOSPHORUS 9.1 mg/dL (2.7-4.5); POTASSIUM 4.1 mmol/L (3.5-5.1); TOTAL BILIRUBIN 0.3 mg/dL (0.0-1.0); TOTAL PROTEIN, SERUM 4.3 g/dL (6.4-8.3)
[2023-09-27 05:50] LABS: HEMATOCRIT 23.1 % (36-54); HEMOGLOBIN 7.6 g/dL (14.0-18.0); MEAN CORPUSCULAR HEMOGLOBIN 29 pg (27-31); MEAN CORPUSCULAR HGB CONC 33 % (32-36); MEAN CORPUSCULAR VOLUME 88 fL (79.0-98.0); PLATELET COUNT (AUTO) 180 K/uL (130-430); RED BLOOD CELL COUNT(AUTO) 2.62 MIL/uL (4.2-6.2); RED CELL DISTRIBUTION WIDTH 17.2 % (9.0-15.0)
[2023-09-27 10:09] LABS: TOTAL IRON BIND. CAPACITY 104 ug/dL (250-450)
[2023-09-27 11:12] LABS: BAND % (MANUAL) 8 % (0-6); BASOPHILS % (MANUAL) 0 % (0-2); EOSINOPHILS % (MANUAL) 0 % (0-7); LYMPHOCYTES % (MANUAL) 1 % (20-46); MONOCYTES % (MANUAL) 3 % (0-11)
[2023-09-27 11:13] LABS: PLATELET ESTIMATE ADEQUATE (ADEQUATE)
[2023-09-27] MEDS: FUROSEMIDE 100 MG in D5W 90 ML IV SCH (11:26)
[2023-09-27] MEDS: HEPARIN SODIUM,PORCINE 5,000 UNITS/ML VIAL MC PRN (13:23)
[2023-09-27] MEDS: ALBUMIN HUMAN 25% 200 ML IV PRN (13:36)
[2023-09-27] MEDS: METOCLOPRAMIDE HCL 10 MG/2 ML VIAL ONE (14:53)
[2023-09-27] MEDS: EPOETIN ALFA-EPBX 3,000 UNITS/ML VIAL SUBCUT SCH (17:13)
[2023-09-27] MEDS: METHYLPREDNISOLONE SOD SUCC 40 MG/ML VIAL IVP SCH (21:19)
[2023-09-27] MEDS: HEPARIN SODIUM,PORCINE 5,000 UNITS/ML VIAL SUBCUT SCH (21:29)
[2023-09-28] VITALS (36 sets, daily range): BP systolic 112–169; PULSE 73–115; RESP 11–26; TEMP 95.5–96.9; O2SAT 84–100
[2023-09-28] MEDS: FUROSEMIDE 20 MG/2 ML VIAL ONE (05:08)
[2023-09-28] MEDS: FUROSEMIDE 40 MG/4 ML VIAL ONE (05:08)
[2023-09-28 06:32] LABS: BASOPHILS # (AUTO) 0.1 K/uL (0.0-0.2); BASOPHILS % (AUTO) 0.5 % (0.0-2.0); EOSINOPHILS # (AUTO) 0.1 K/uL (0.0-0.4); EOSINOPHILS % (AUTO) 0.5 % (0.0-4.0); LYMPHOCYTES # (AUTO) 0.2 K/uL (1.0-5.5); LYMPHOCYTES % (AUTO) 1.6 % (20.5-51.5); MEAN CORPUSCULAR HEMOGLOBIN 29 pg (27-31); MEAN CORPUSCULAR HGB CONC 34 % (32-36); MEAN CORPUSCULAR VOLUME 85 fL (79.0-98.0); MONOCYTES # (AUTO) 0.3 K/uL (0.0-1.0); MONOCYTES % (AUTO) 2.6 % (1.7-9.3); NEUTROPHILS # (AUTO) 10.2 K/uL (1.8-7.7); NEUTROPHILS % (AUTO) 94.8 % (40.0-70.0); PLATELET COUNT (AUTO) 129 K/uL (130-430); RED BLOOD CELL COUNT(AUTO) 2.18 MIL/uL (4.2-6.2); RED CELL DISTRIBUTION WIDTH 16.8 % (9.0-15.0); WHITE BLOOD COUNT (AUTO) 10.8 K/uL (4.8-10.8)
[2023-09-28 07:22] LABS: CALCIUM 7.6 mg/dL (8.4-11.0); CREATININE 3.26 mg/dL (0.55-1.30); POTASSIUM 3.6 mmol/L (3.5-5.1); TOTAL BILIRUBIN 0.4 mg/dL (0.0-1.0); TOTAL PROTEIN, SERUM 4.3 g/dL (6.4-8.3)
[2023-09-28 08:13] LABS: HEMATOCRIT 18.6 % (36-54); HEMOGLOBIN 6.4 g/dL (14.0-18.0)
[2023-09-28] MEDS: FOLIC ACID 1 MG TABLET NG SCH (08:58)
[2023-09-28] MEDS: ALBUMIN HUMAN 25% 200 ML IV ONE (13:18)
[2023-09-28] MEDS: LOPERAMIDE HCL 2 MG CAPSULE PO ONE (13:18)
[2023-09-29] VITALS (25 sets, daily range): BP systolic 111–146; PULSE 85–108; RESP 13–22; TEMP 96.3–98.3; O2SAT 95–98
[2023-09-29 06:08] LABS: BASOPHILS % (AUTO) 0.1 % (0.0-2.0); HEMATOCRIT 26.3 % (36-54); LYMPHOCYTES # (AUTO) 0.2 K/uL (1.0-5.5); LYMPHOCYTES % (AUTO) 1.4 % (20.5-51.5); MEAN CORPUSCULAR HEMOGLOBIN 28 pg (27-31); MEAN CORPUSCULAR HGB CONC 34 % (32-36); MEAN CORPUSCULAR VOLUME 83 fL (79.0-98.0); MONOCYTES # (AUTO) 0.2 K/uL (0.0-1.0); MONOCYTES % (AUTO) 1.8 % (1.7-9.3); NEUTROPHILS # (AUTO) 11.1 K/uL (1.8-7.7); NEUTROPHILS % (AUTO) 96.7 % (40.0-70.0); PLATELET COUNT (AUTO) 105 K/uL (130-430); RED BLOOD CELL COUNT(AUTO) 3.18 MIL/uL (4.2-6.2); RED CELL DISTRIBUTION WIDTH 17.6 % (9.0-15.0); WHITE BLOOD COUNT (AUTO) 11.4 K/uL (4.8-10.8)
[2023-09-29 06:22] LABS: ALBUMIN 2.4 g/dL (3.4-4.8); CALCIUM 7.7 mg/dL (8.4-11.0); CREATININE 2.56 mg/dL (0.55-1.30); POTASSIUM 3.9 mmol/L (3.5-5.1); TOTAL BILIRUBIN 0.8 mg/dL (0.0-1.0); TOTAL PROTEIN, SERUM 4.7 g/dL (6.4-8.3)
[2023-09-29] MEDS: METHYLPREDNISOLONE SOD SUCC 40 MG/ML VIAL IVP SCH (09:13)
[2023-09-29] MEDS: LACTULOSE 20 GM/30 ML UDC PO ONE (17:08)
[2023-09-29] MEDS: LACTULOSE 20 GM/30 ML UDC PO SCH (20:02)
[2023-09-29] MEDS: RIFAXIMIN 550 MG TABLET PO SCH (20:04)
[2023-09-30] VITALS (31 sets, daily range): BP systolic 94–154; PULSE 96–109; RESP 10–22; TEMP 95.6–98.6; O2SAT 93–97
[2023-09-30 06:00] LABS: CALCIUM 7.6 mg/dL (8.4-11.0); CREATININE 2.9 mg/dL (0.55-1.30); FREE T4 (FREE THYROXINE) 0.6 ng/dl (0.8-1.5); POTASSIUM 4.1 mmol/L (3.5-5.1); THYROID STIMULATING HORMONE 0.1 uIu/mL (0.36-3.74); TOTAL BILIRUBIN 0.4 mg/dL (0.0-1.0); TOTAL PROTEIN, SERUM 4.3 g/dL (6.4-8.3)
[2023-09-30 06:41] LABS: BASOPHILS % (AUTO) 0.2 % (0.0-2.0); HEMATOCRIT 24.9 % (36-54); HEMOGLOBIN 8.5 g/dL (14.0-18.0); LYMPHOCYTES # (AUTO) 0.1 K/uL (1.0-5.5); LYMPHOCYTES % (AUTO) 0.9 % (20.5-51.5); MEAN CORPUSCULAR HEMOGLOBIN 28 pg (27-31); MEAN CORPUSCULAR HGB CONC 34 % (32-36); MEAN CORPUSCULAR VOLUME 83 fL (79.0-98.0); MONOCYTES # (AUTO) 0.4 K/uL (0.0-1.0); MONOCYTES % (AUTO) 3.1 % (1.7-9.3); NEUTROPHILS % (AUTO) 95.8 % (40.0-70.0); PLATELET COUNT (AUTO) 104 K/uL (130-430); RED CELL DISTRIBUTION WIDTH 17.5 % (9.0-15.0); WHITE BLOOD COUNT (AUTO) 12.5 K/uL (4.8-10.8)
[2023-10-01] VITALS (31 sets, daily range): BP systolic 101–151; PULSE 90–120; RESP 11–24; TEMP 98.3–100.1; O2SAT 90–100
[2023-10-01 07:02] LABS: BASOPHILS % (AUTO) 0.2 % (0.0-2.0); HEMATOCRIT 23.3 % (36-54); HEMOGLOBIN 7.8 g/dL (14.0-18.0); LYMPHOCYTES # (AUTO) 0.1 K/uL (1.0-5.5); MEAN CORPUSCULAR HEMOGLOBIN 28 pg (27-31); MEAN CORPUSCULAR HGB CONC 33 % (32-36); MEAN CORPUSCULAR VOLUME 84 fL (79.0-98.0); MONOCYTES # (AUTO) 0.4 K/uL (0.0-1.0); NEUTROPHILS # (AUTO) 10.5 K/uL (1.8-7.7); NEUTROPHILS % (AUTO) 94.8 % (40.0-70.0); PLATELET COUNT (AUTO) 103 K/uL (130-430); RED BLOOD CELL COUNT(AUTO) 2.78 MIL/uL (4.2-6.2); RED CELL DISTRIBUTION WIDTH 17.5 % (9.0-15.0); WHITE BLOOD COUNT (AUTO) 11.1 K/uL (4.8-10.8)
[2023-10-01 08:37] LABS: POTASSIUM 4.4 mmol/L (3.5-5.1)
[2023-10-01 08:38] LABS: ALBUMIN 1.7 g/dL (3.4-4.8); CREATININE 2.54 mg/dL (0.55-1.30); TOTAL BILIRUBIN 0.4 mg/dL (0.0-1.0); TOTAL PROTEIN, SERUM 4.5 g/dL (6.4-8.3)
[2023-10-02] VITALS (31 sets, daily range): BP systolic 88–165; PULSE 91–111; RESP 12–33; TEMP 98.3–99.3; O2SAT 20–99
[2023-10-02 05:28] LABS: ALBUMIN 1.6 g/dL (3.4-4.8); CALCIUM 7.1 mg/dL (8.4-11.0); CREATININE 2.95 mg/dL (0.55-1.30); POTASSIUM 4.6 mmol/L (3.5-5.1); TOTAL BILIRUBIN 0.4 mg/dL (0.0-1.0); TOTAL PROTEIN, SERUM 4.6 g/dL (6.4-8.3)
[2023-10-02 05:32] LABS: BASOPHILS % (AUTO) 0.2 % (0.0-2.0); HEMATOCRIT 22.7 % (36-54); HEMOGLOBIN 7.6 g/dL (14.0-18.0); LYMPHOCYTES # (AUTO) 0.4 K/uL (1.0-5.5); MEAN CORPUSCULAR HEMOGLOBIN 28 pg (27-31); MEAN CORPUSCULAR HGB CONC 33 % (32-36); MEAN CORPUSCULAR VOLUME 84 fL (79.0-98.0); MONOCYTES # (AUTO) 0.7 K/uL (0.0-1.0); MONOCYTES % (AUTO) 5.3 % (1.7-9.3); NEUTROPHILS # (AUTO) 11.8 K/uL (1.8-7.7); NEUTROPHILS % (AUTO) 91.5 % (40.0-70.0); PLATELET COUNT (AUTO) 81 K/uL (130-430); RED CELL DISTRIBUTION WIDTH 17.5 % (9.0-15.0); WHITE BLOOD COUNT (AUTO) 12.9 K/uL (4.8-10.8)
[2023-10-02] MEDS: METHYLPREDNISOLONE SOD SUCC 40 MG/ML VIAL IVP SCH (14:04)
[2023-10-02] MEDS: LOPERAMIDE HCL 2 MG CAPSULE PO PRN (18:58)
[2023-10-02] MEDS: INSULIN GLARGINE 100 UNITS/ML, 10 ML VIAL SUBCUT SCH (20:16)
[2023-10-02] MEDS: ALBUMIN HUMAN 25% 100 ML IV ONE (21:17)
[2023-10-03] VITALS (34 sets, daily range): BP systolic 107–149; PULSE 95–109; RESP 12–28; TEMP 97.8–98.9; O2SAT 95–98
[2023-10-03 04:42] LABS: BASOPHILS % (AUTO) 0.2 % (0.0-2.0); EOSINOPHILS % (AUTO) 0.1 % (0.0-4.0); LYMPHOCYTES # (AUTO) 0.1 K/uL (1.0-5.5); LYMPHOCYTES % (AUTO) 0.7 % (20.5-51.5); MEAN CORPUSCULAR HEMOGLOBIN 28 pg (27-31); MEAN CORPUSCULAR HGB CONC 33 % (32-36); MEAN CORPUSCULAR VOLUME 84 fL (79.0-98.0); MONOCYTES # (AUTO) 0.3 K/uL (0.0-1.0); MONOCYTES % (AUTO) 1.5 % (1.7-9.3); NEUTROPHILS # (AUTO) 17.5 K/uL (1.8-7.7); NEUTROPHILS % (AUTO) 97.5 % (40.0-70.0); PLATELET COUNT (AUTO) 56 K/uL (130-430); RED BLOOD CELL COUNT(AUTO) 2.45 MIL/uL (4.2-6.2); RED CELL DISTRIBUTION WIDTH 16.9 % (9.0-15.0)
[2023-10-03 05:02] LABS: CALCIUM 7.1 mg/dL (8.4-11.0); CREATININE 2.49 mg/dL (0.55-1.30); POTASSIUM 4.3 mmol/L (3.5-5.1); TOTAL BILIRUBIN 0.4 mg/dL (0.0-1.0); TOTAL PROTEIN, SERUM 4.4 g/dL (6.4-8.3)
[2023-10-03 05:14] LABS: PROTHROMBIN TIME 10.7 SECS (9.5-12.5)
[2023-10-03 07:53] LABS: HEMATOCRIT 20.5 % (36-54); HEMOGLOBIN 6.8 g/dL (14.0-18.0)
[2023-10-04] VITALS (36 sets, daily range): BP systolic 105–138; PULSE 86–109; RESP 12–29; TEMP 96.8–98.9; O2SAT 91–98
[2023-10-04 06:00] LABS: BASOPHILS % (AUTO) 0.1 % (0.0-2.0); HEMATOCRIT 24.9 % (36-54); HEMOGLOBIN 8.2 g/dL (14.0-18.0); LYMPHOCYTES # (AUTO) 0.2 K/uL (1.0-5.5); LYMPHOCYTES % (AUTO) 1.6 % (20.5-51.5); MEAN CORPUSCULAR HEMOGLOBIN 28 pg (27-31); MEAN CORPUSCULAR HGB CONC 33 % (32-36); MEAN CORPUSCULAR VOLUME 87 fL (79.0-98.0); MONOCYTES # (AUTO) 0.2 K/uL (0.0-1.0); MONOCYTES % (AUTO) 1.8 % (1.7-9.3); NEUTROPHILS # (AUTO) 12.1 K/uL (1.8-7.7); NEUTROPHILS % (AUTO) 96.5 % (40.0-70.0); PLATELET COUNT (AUTO) 51 K/uL (130-430); RED BLOOD CELL COUNT(AUTO) 2.88 MIL/uL (4.2-6.2); WHITE BLOOD COUNT (AUTO) 12.6 K/uL (4.8-10.8)
[2023-10-04 06:05] LABS: ALBUMIN 1.7 g/dL (3.4-4.8); CALCIUM 7.1 mg/dL (8.4-11.0); CREATININE 2.9 mg/dL (0.55-1.30); POTASSIUM 4.3 mmol/L (3.5-5.1); TOTAL BILIRUBIN 0.3 mg/dL (0.0-1.0); TOTAL PROTEIN, SERUM 4.7 g/dL (6.4-8.3)
[2023-10-05] VITALS (34 sets, daily range): BP systolic 96–153; PULSE 95–111; RESP 10–44; TEMP 98.6–98.8; O2SAT 91–100
[2023-10-05 06:33] LABS: HEMATOCRIT 29.7 % (36-54); HEMOGLOBIN 9.9 g/dL (14.0-18.0); LYMPHOCYTES # (AUTO) 0.2 K/uL (1.0-5.5); LYMPHOCYTES % (AUTO) 1.5 % (20.5-51.5); MEAN CORPUSCULAR HEMOGLOBIN 29 pg (27-31); MEAN CORPUSCULAR HGB CONC 33 % (32-36); MEAN CORPUSCULAR VOLUME 86 fL (79.0-98.0); MONOCYTES # (AUTO) 0.3 K/uL (0.0-1.0); MONOCYTES % (AUTO) 2.1 % (1.7-9.3); NEUTROPHILS % (AUTO) 96.4 % (40.0-70.0); RED BLOOD CELL COUNT(AUTO) 3.44 MIL/uL (4.2-6.2); RED CELL DISTRIBUTION WIDTH 16.4 % (9.0-15.0); WHITE BLOOD COUNT (AUTO) 12.4 K/uL (4.8-10.8)
[2023-10-05 06:42] LABS: ALBUMIN 1.6 g/dL (3.4-4.8); CALCIUM 7.8 mg/dL (8.4-11.0); CREATININE 2.63 mg/dL (0.55-1.30); POTASSIUM 3.7 mmol/L (3.5-5.1); TOTAL BILIRUBIN 0.4 mg/dL (0.0-1.0); TOTAL PROTEIN, SERUM 4.7 g/dL (6.4-8.3)
[2023-10-05 09:56] LABS: PLATELET COUNT (AUTO) 48 K/uL (130-430)
[2023-10-05] MEDS ORDERED: HEPARIN SODIUM, PORCINE 10,000 UNITS/ 10 ML VIAL MC PRN (15:00)
[2023-10-05] MEDS: LEVOFLOXACIN 250 MG/D5W 50 ML IV SCH (22:34)
[2023-10-05] MEDS: LEVOFLOXACIN 250 MG/D5W 50 ML IV ONE (23:00)
[2023-10-05] MEDS: DOXYCYCLINE HYCLATE 100 MG VIAL IV ONE (23:01)
[2023-10-05] MEDS: DOXYCYCLINE HYCLATE 100 MG in D5W 100 ML IV SCH (23:05)
[2023-10-06] VITALS (32 sets, daily range): BP systolic 109–185; PULSE 10–109; RESP 10–25; TEMP 97.1–99.2; O2SAT 93–99
[2023-10-06 06:28] LABS: INR 1.1 (0.80-1.20); PROTHROMBIN TIME 11.4 SECS (9.5-12.5)
[2023-10-06 07:06] LABS: ALBUMIN 1.6 g/dL (3.4-4.8); CREATININE 2.94 mg/dL (0.55-1.30); POTASSIUM 3.5 mmol/L (3.5-5.1); TOTAL BILIRUBIN 0.3 mg/dL (0.0-1.0); TOTAL PROTEIN, SERUM 4.6 g/dL (6.4-8.3)
[2023-10-06 07:09] LABS: CALCIUM 6.7 mg/dL (8.4-11.0)
[2023-10-06 07:42] LABS: BASOPHILS # (AUTO) 0.1 K/uL (0.0-0.2); HEMATOCRIT 30.3 % (36-54); LYMPHOCYTES # (AUTO) 0.1 K/uL (1.0-5.5); MEAN CORPUSCULAR HEMOGLOBIN 29 pg (27-31); MEAN CORPUSCULAR HGB CONC 33 % (32-36); MEAN CORPUSCULAR VOLUME 87 fL (79.0-98.0); MONOCYTES # (AUTO) 0.1 K/uL (0.0-1.0); MONOCYTES % (AUTO) 0.9 % (1.7-9.3); NEUTROPHILS # (AUTO) 9.5 K/uL (1.8-7.7); NEUTROPHILS % (AUTO) 97.1 % (40.0-70.0); PLATELET COUNT (AUTO) 51 K/uL (130-430); RED BLOOD CELL COUNT(AUTO) 3.49 MIL/uL (4.2-6.2); RED CELL DISTRIBUTION WIDTH 16.5 % (9.0-15.0)
[2023-10-06 07:53] LABS: WHITE BLOOD COUNT (AUTO) 9.8 K/uL (4.8-10.8)
[2023-10-06] MEDS: CALCIUM GLUC 1 GM/100ML-NACL 100 ML IV ONE (13:11)
[2023-10-06] MEDS: INSULIN GLARGINE 100 UNITS/ML, 10 ML VIAL SUBCUT ONE (13:15)
[2023-10-06] MEDS: ALBUMIN HUMAN 25% 100 ML IV SCH (14:42)
[2023-10-06] MEDS: INSULIN GLARGINE 100 UNITS/ML, 10 ML VIAL SUBCUT SCH (20:27)
[2023-10-07] VITALS (35 sets, daily range): BP systolic 111–177; PULSE 86–101; RESP 22; TEMP 97.8–98.8; O2SAT 90–99
[2023-10-07 05:20] LABS: BASOPHILS % (AUTO) 0.3 % (0.0-2.0); EOSINOPHILS # (AUTO) 0.1 K/uL (0.0-0.4); EOSINOPHILS % (AUTO) 1.7 % (0.0-4.0); HEMATOCRIT 26.7 % (36-54); HEMOGLOBIN 9.2 g/dL (14.0-18.0); LYMPHOCYTES # (AUTO) 0.2 K/uL (1.0-5.5); LYMPHOCYTES % (AUTO) 2.5 % (20.5-51.5); MEAN CORPUSCULAR HEMOGLOBIN 29 pg (27-31); MEAN CORPUSCULAR HGB CONC 35 % (32-36); MEAN CORPUSCULAR VOLUME 85 fL (79.0-98.0); MONOCYTES # (AUTO) 0.1 K/uL (0.0-1.0); NEUTROPHILS # (AUTO) 8.1 K/uL (1.8-7.7); NEUTROPHILS % (AUTO) 94.5 % (40.0-70.0); PLATELET COUNT (AUTO) 75 K/uL (130-430); RED BLOOD CELL COUNT(AUTO) 3.13 MIL/uL (4.2-6.2); RED CELL DISTRIBUTION WIDTH 16.2 % (9.0-15.0); WHITE BLOOD COUNT (AUTO) 8.6 K/uL (4.8-10.8)
[2023-10-07 05:21] LABS: INR 1.1 (0.80-1.20); PROTHROMBIN TIME 11.6 SECS (9.5-12.5)
[2023-10-07 05:38] LABS: ALBUMIN 2.6 g/dL (3.4-4.8); CREATININE 3.03 mg/dL (0.55-1.30); POTASSIUM 3.5 mmol/L (3.5-5.1); TOTAL BILIRUBIN 0.5 mg/dL (0.0-1.0)
[2023-10-07 06:30] LABS: CALCIUM 6.7 mg/dL (8.4-11.0)
[2023-10-08] VITALS (31 sets, daily range): BP systolic 114–150; PULSE 90–102; RESP 6–23; TEMP 98.3–99; O2SAT 91–97
[2023-10-08 06:22] LABS: BASOPHILS % (AUTO) 0.2 % (0.0-2.0); HEMATOCRIT 30.2 % (36-54); HEMOGLOBIN 10.3 g/dL (14.0-18.0); LYMPHOCYTES # (AUTO) 0.1 K/uL (1.0-5.5); LYMPHOCYTES % (AUTO) 1.2 % (20.5-51.5); MEAN CORPUSCULAR HEMOGLOBIN 29 pg (27-31); MEAN CORPUSCULAR HGB CONC 34 % (32-36); MEAN CORPUSCULAR VOLUME 86 fL (79.0-98.0); MONOCYTES # (AUTO) 0.1 K/uL (0.0-1.0); MONOCYTES % (AUTO) 1.9 % (1.7-9.3); NEUTROPHILS % (AUTO) 96.7 % (40.0-70.0); PLATELET COUNT (AUTO) 53 K/uL (130-430); RED BLOOD CELL COUNT(AUTO) 3.52 MIL/uL (4.2-6.2); RED CELL DISTRIBUTION WIDTH 16.2 % (9.0-15.0); WHITE BLOOD COUNT (AUTO) 7.3 K/uL (4.8-10.8)
[2023-10-08 06:53] LABS: ALBUMIN 2.2 g/dL (3.4-4.8); CREATININE 2.64 mg/dL (0.55-1.30); POTASSIUM 3.5 mmol/L (3.5-5.1); TOTAL BILIRUBIN 0.5 mg/dL (0.0-1.0); TOTAL PROTEIN, SERUM 4.8 g/dL (6.4-8.3)
[2023-10-08 07:09] LABS: CALCIUM 6.9 mg/dL (8.4-11.0)
[2023-10-08 13:06] LABS: HEPATITIS A AB, IgM Negative (Negative); HEPATITIS B CORE AB, IgM Negative (Negative); HEPATITIS B SURFACE AG Negative (Negative); HEPATITIS C VIRUS AB Non Reactive (Non Reactive)
[2023-10-08] MEDS: MEROPENEM 500 MG in NS 50 ML IV ONE (14:52)
[2023-10-08] MEDS: SUCRALFATE 1 GM/10 ML UDC GT SCH (20:23)
[2023-10-08] MEDS: MEROPENEM 500 MG in NS 50 ML IV SCH (20:23)
[2023-10-09] VITALS (35 sets, daily range): BP systolic 98–143; PULSE 61–109; RESP 22–25; TEMP 97.6–98.6; O2SAT 92–99
[2023-10-09 04:47] LABS: BASOPHILS % (AUTO) 0.4 % (0.0-2.0); EOSINOPHILS % (AUTO) 0.1 % (0.0-4.0); HEMATOCRIT 31.5 % (36-54); HEMOGLOBIN 10.6 g/dL (14.0-18.0); LYMPHOCYTES # (AUTO) 0.1 K/uL (1.0-5.5); LYMPHOCYTES % (AUTO) 1.1 % (20.5-51.5); MEAN CORPUSCULAR HEMOGLOBIN 29 pg (27-31); MEAN CORPUSCULAR HGB CONC 34 % (32-36); MEAN CORPUSCULAR VOLUME 86 fL (79.0-98.0); MONOCYTES # (AUTO) 0.2 K/uL (0.0-1.0); MONOCYTES % (AUTO) 3.2 % (1.7-9.3); NEUTROPHILS # (AUTO) 5.7 K/uL (1.8-7.7); NEUTROPHILS % (AUTO) 95.2 % (40.0-70.0); PLATELET COUNT (AUTO) 61 K/uL (130-430); RED BLOOD CELL COUNT(AUTO) 3.64 MIL/uL (4.2-6.2); RED CELL DISTRIBUTION WIDTH 16.8 % (9.0-15.0)
[2023-10-09 12:06] LABS: QUANTIFERON TB GOLD Indeterminate (Negative)
[2023-10-10] VITALS (39 sets, daily range): BP systolic 96–159; PULSE 82–117; RESP 22–23; TEMP 98.4–99.8; O2SAT 92–96
[2023-10-10 05:19] LABS: BASOPHILS % (AUTO) 0.3 % (0.0-2.0); HEMATOCRIT 30.1 % (36-54); HEMOGLOBIN 10.2 g/dL (14.0-18.0); LYMPHOCYTES # (AUTO) 0.1 K/uL (1.0-5.5); LYMPHOCYTES % (AUTO) 1.4 % (20.5-51.5); MEAN CORPUSCULAR HEMOGLOBIN 29 pg (27-31); MEAN CORPUSCULAR HGB CONC 34 % (32-36); MEAN CORPUSCULAR VOLUME 87 fL (79.0-98.0); MONOCYTES # (AUTO) 0.1 K/uL (0.0-1.0); MONOCYTES % (AUTO) 2.6 % (1.7-9.3); NEUTROPHILS % (AUTO) 95.7 % (40.0-70.0); PLATELET COUNT (AUTO) 61 K/uL (130-430); RED BLOOD CELL COUNT(AUTO) 3.47 MIL/uL (4.2-6.2); RED CELL DISTRIBUTION WIDTH 16.7 % (9.0-15.0); WHITE BLOOD COUNT (AUTO) 5.2 K/uL (4.8-10.8)
[2023-10-10 05:34] LABS: TOTAL IRON BIND. CAPACITY 94 ug/dL (250-450)
[2023-10-10 05:53] LABS: ALBUMIN 1.7 g/dL (3.4-4.8); CALCIUM 7.3 mg/dL (8.4-11.0); CREATININE 2.32 mg/dL (0.55-1.30); TOTAL BILIRUBIN 0.5 mg/dL (0.0-1.0); TOTAL PROTEIN, SERUM 4.5 g/dL (6.4-8.3)
[2023-10-10] MEDS: ALBUMIN HUMAN 25% 100 ML IV SCH (15:21)
[2023-10-10] MEDS ORDERED: HEPARIN SODIUM, PORCINE 10,000 UNITS/ 10 ML VIAL MC PRN ×3 (17:30→17:36)
[2023-10-10] MEDS ORDERED: HEPARIN SODIUM,PORCINE 5,000 UNITS/ML VIAL MC PRN (17:45)
[2023-10-11] VITALS (36 sets, daily range): BP systolic 108–153; PULSE 90–130; RESP 12–23; TEMP 96.5–98.6; O2SAT 84–100
[2023-10-11 05:25] LABS: ALBUMIN 2.5 g/dL (3.4-4.8); BASOPHILS % (AUTO) 0.2 % (0.0-2.0); CALCIUM 7.5 mg/dL (8.4-11.0); CREATININE 2.07 mg/dL (0.55-1.30); HEMATOCRIT 25.5 % (36-54); HEMOGLOBIN 8.7 g/dL (14.0-18.0); LYMPHOCYTES # (AUTO) 0.1 K/uL (1.0-5.5); LYMPHOCYTES % (AUTO) 2.8 % (20.5-51.5); MEAN CORPUSCULAR HEMOGLOBIN 29 pg (27-31); MEAN CORPUSCULAR HGB CONC 34 % (32-36); MEAN CORPUSCULAR VOLUME 86 fL (79.0-98.0); MONOCYTES # (AUTO) 0.2 K/uL (0.0-1.0); MONOCYTES % (AUTO) 4.4 % (1.7-9.3); NEUTROPHILS # (AUTO) 3.5 K/uL (1.8-7.7); NEUTROPHILS % (AUTO) 92.6 % (40.0-70.0); PLATELET COUNT (AUTO) 59 K/uL (130-430); RED BLOOD CELL COUNT(AUTO) 2.96 MIL/uL (4.2-6.2); RED CELL DISTRIBUTION WIDTH 16.6 % (9.0-15.0); TOTAL BILIRUBIN 0.6 mg/dL (0.0-1.0); TOTAL PROTEIN, SERUM 4.9 g/dL (6.4-8.3); WHITE BLOOD COUNT (AUTO) 3.8 K/uL (4.8-10.8)
[2023-10-11] MEDS ORDERED: ONDANSETRON HCL 4 MG/2 ML VIAL IVP PRN (11:45)
[2023-10-11] MEDS ORDERED: LABETALOL 100 MG/ 20ML VIAL IVP PRN (11:45)
[2023-10-11] MEDS ORDERED: HYDROmorphone 1 MG/ML INJ. CARTRIDGE IVP PRN ×2 (11:45)
[2023-10-11] MEDS: NACL 0.9% 1,000 ML IV SCH (14:00)
[2023-10-12] VITALS (32 sets, daily range): BP systolic 102–144; PULSE 99–113; RESP 22–23; TEMP 97–99.4; O2SAT 91–97
[2023-10-12 08:21] LABS: BASOPHILS % (AUTO) 0.4 % (0.0-2.0); HEMATOCRIT 26.8 % (36-54); HEMOGLOBIN 9.2 g/dL (14.0-18.0); LYMPHOCYTES # (AUTO) 0.1 K/uL (1.0-5.5); LYMPHOCYTES % (AUTO) 1.4 % (20.5-51.5); MEAN CORPUSCULAR HEMOGLOBIN 30 pg (27-31); MEAN CORPUSCULAR HGB CONC 34 % (32-36); MEAN CORPUSCULAR VOLUME 86 fL (79.0-98.0); MONOCYTES # (AUTO) 0.2 K/uL (0.0-1.0); MONOCYTES % (AUTO) 3.8 % (1.7-9.3); NEUTROPHILS # (AUTO) 5.5 K/uL (1.8-7.7); NEUTROPHILS % (AUTO) 94.4 % (40.0-70.0); PLATELET COUNT (AUTO) 83 K/uL (130-430); RED BLOOD CELL COUNT(AUTO) 3.11 MIL/uL (4.2-6.2); RED CELL DISTRIBUTION WIDTH 17.5 % (9.0-15.0); WHITE BLOOD COUNT (AUTO) 5.8 K/uL (4.8-10.8)
[2023-10-12 08:29] LABS: CALCIUM 7.2 mg/dL (8.4-11.0); CREATININE 2.27 mg/dL (0.55-1.30); PHOSPHORUS 7.1 mg/dL (2.7-4.5); POTASSIUM 3.7 mmol/L (3.5-5.1); TOTAL BILIRUBIN 0.7 mg/dL (0.0-1.0); TOTAL PROTEIN, SERUM 4.7 g/dL (6.4-8.3)
[2023-10-12] MEDS ORDERED: SEVOFLURANE 15 MIN GAS INH ONE (11:00)
[2023-10-13] VITALS (34 sets, daily range): BP systolic 12–125; PULSE 100–123; RESP 22; TEMP 97.8–99; O2SAT 90–98
[2023-10-13 06:31] LABS: BASOPHILS % (AUTO) 0.5 % (0.0-2.0); HEMOGLOBIN 9.6 g/dL (14.0-18.0); LYMPHOCYTES # (AUTO) 0.1 K/uL (1.0-5.5); LYMPHOCYTES % (AUTO) 0.9 % (20.5-51.5); MEAN CORPUSCULAR HEMOGLOBIN 29 pg (27-31); MEAN CORPUSCULAR HGB CONC 33 % (32-36); MEAN CORPUSCULAR VOLUME 88 fL (79.0-98.0); MONOCYTES # (AUTO) 0.2 K/uL (0.0-1.0); MONOCYTES % (AUTO) 3.5 % (1.7-9.3); NEUTROPHILS # (AUTO) 6.6 K/uL (1.8-7.7); NEUTROPHILS % (AUTO) 95.1 % (40.0-70.0); PLATELET COUNT (AUTO) 77 K/uL (130-430); RED BLOOD CELL COUNT(AUTO) 3.29 MIL/uL (4.2-6.2); RED CELL DISTRIBUTION WIDTH 17.2 % (9.0-15.0)
[2023-10-13 07:03] LABS: ALBUMIN 1.8 g/dL (3.4-4.8); CALCIUM 7.3 mg/dL (8.4-11.0); CREATININE 1.91 mg/dL (0.55-1.30); POTASSIUM 3.7 mmol/L (3.5-5.1); TOTAL BILIRUBIN 0.6 mg/dL (0.0-1.0); TOTAL PROTEIN, SERUM 4.7 g/dL (6.4-8.3)
[2023-10-13] MEDS: ALBUMIN HUMAN 25% 100 ML IV ONE (17:00)
[2023-10-14] VITALS (31 sets, daily range): BP systolic 105–154; PULSE 97–114; RESP 20–22; TEMP 98–98.9; O2SAT 91–97
[2023-10-14 05:00] LABS: BASOPHILS % (AUTO) 0.2 % (0.0-2.0); HEMATOCRIT 26.2 % (36-54); HEMOGLOBIN 8.9 g/dL (14.0-18.0); LYMPHOCYTES # (AUTO) 0.1 K/uL (1.0-5.5); LYMPHOCYTES % (AUTO) 1.3 % (20.5-51.5); MEAN CORPUSCULAR HEMOGLOBIN 30 pg (27-31); MEAN CORPUSCULAR HGB CONC 34 % (32-36); MEAN CORPUSCULAR VOLUME 87 fL (79.0-98.0); MONOCYTES # (AUTO) 0.2 K/uL (0.0-1.0); MONOCYTES % (AUTO) 2.6 % (1.7-9.3); NEUTROPHILS # (AUTO) 7.5 K/uL (1.8-7.7); NEUTROPHILS % (AUTO) 95.9 % (40.0-70.0); PLATELET COUNT (AUTO) 76 K/uL (130-430); RED BLOOD CELL COUNT(AUTO) 3.01 MIL/uL (4.2-6.2); RED CELL DISTRIBUTION WIDTH 17.1 % (9.0-15.0); WHITE BLOOD COUNT (AUTO) 7.9 K/uL (4.8-10.8)
[2023-10-14 05:10] LABS: CALCIUM 7.2 mg/dL (8.4-11.0); CREATININE 2.08 mg/dL (0.55-1.30); POTASSIUM 3.6 mmol/L (3.5-5.1); TOTAL BILIRUBIN 0.6 mg/dL (0.0-1.0); TOTAL PROTEIN, SERUM 4.6 g/dL (6.4-8.3)
[2023-10-15] VITALS (20 sets, daily range): BP systolic 104–138; PULSE 88–115; RESP 20–22; TEMP 97.5–98.6; O2SAT 94–98
[2023-10-15 05:43] LABS: BASOPHILS % (AUTO) 0.1 % (0.0-2.0); HEMATOCRIT 27.9 % (36-54); HEMOGLOBIN 9.4 g/dL (14.0-18.0); LYMPHOCYTES # (AUTO) 0.1 K/uL (1.0-5.5); MEAN CORPUSCULAR HEMOGLOBIN 30 pg (27-31); MEAN CORPUSCULAR HGB CONC 34 % (32-36); MEAN CORPUSCULAR VOLUME 88 fL (79.0-98.0); MONOCYTES # (AUTO) 0.2 K/uL (0.0-1.0); MONOCYTES % (AUTO) 2.1 % (1.7-9.3); NEUTROPHILS # (AUTO) 8.3 K/uL (1.8-7.7); NEUTROPHILS % (AUTO) 96.8 % (40.0-70.0); PLATELET COUNT (AUTO) 72 K/uL (130-430); RED BLOOD CELL COUNT(AUTO) 3.15 MIL/uL (4.2-6.2); RED CELL DISTRIBUTION WIDTH 17.2 % (9.0-15.0); WHITE BLOOD COUNT (AUTO) 8.6 K/uL (4.8-10.8)
[2023-10-15 06:02] LABS: ALBUMIN 1.7 g/dL (3.4-4.8); CALCIUM 7.1 mg/dL (8.4-11.0); CREATININE 2.22 mg/dL (0.55-1.30); POTASSIUM 3.7 mmol/L (3.5-5.1); TOTAL BILIRUBIN 0.5 mg/dL (0.0-1.0); TOTAL PROTEIN, SERUM 4.6 g/dL (6.4-8.3)
[2023-10-16] VITALS (19 sets, daily range): BP systolic 108–127; PULSE 109–129; RESP 15–20; TEMP 98–100.9; O2SAT 94–97
[2023-10-16 06:17] LABS: BASOPHILS % (AUTO) 0.1 % (0.0-2.0); HEMATOCRIT 27.3 % (36-54); HEMOGLOBIN 9.2 g/dL (14.0-18.0); LYMPHOCYTES # (AUTO) 0.1 K/uL (1.0-5.5); LYMPHOCYTES % (AUTO) 1.2 % (20.5-51.5); MEAN CORPUSCULAR HEMOGLOBIN 30 pg (27-31); MEAN CORPUSCULAR HGB CONC 34 % (32-36); MEAN CORPUSCULAR VOLUME 88 fL (79.0-98.0); MONOCYTES # (AUTO) 0.1 K/uL (0.0-1.0); MONOCYTES % (AUTO) 1.5 % (1.7-9.3); NEUTROPHILS # (AUTO) 7.8 K/uL (1.8-7.7); NEUTROPHILS % (AUTO) 97.2 % (40.0-70.0); PLATELET COUNT (AUTO) 70 K/uL (130-430); RED CELL DISTRIBUTION WIDTH 17.6 % (9.0-15.0)
[2023-10-16 06:50] LABS: CALCIUM 7.6 mg/dL (8.4-11.0); CREATININE 1.97 mg/dL (0.55-1.30)
[2023-10-16] MEDS: methylPREDNISolone SOD SUCC/PF 62.5 MG/ML VIAL IVP SCH (22:25)
[2023-10-17] VITALS (9 sets, daily range): BP systolic 102–114; PULSE 120–128; RESP 14–18; TEMP 97.7–98.1; O2SAT 95–96
[2023-10-17 05:48] LABS: BASOPHILS % (AUTO) 0.3 % (0.0-2.0); HEMOGLOBIN 9.2 g/dL (14.0-18.0); LYMPHOCYTES # (AUTO) 0.1 K/uL (1.0-5.5); LYMPHOCYTES % (AUTO) 1.4 % (20.5-51.5); MEAN CORPUSCULAR HEMOGLOBIN 30 pg (27-31); MEAN CORPUSCULAR HGB CONC 34 % (32-36); MEAN CORPUSCULAR VOLUME 88 fL (79.0-98.0); MONOCYTES # (AUTO) 0.1 K/uL (0.0-1.0); MONOCYTES % (AUTO) 1.4 % (1.7-9.3); NEUTROPHILS # (AUTO) 6.8 K/uL (1.8-7.7); NEUTROPHILS % (AUTO) 96.9 % (40.0-70.0); PLATELET COUNT (AUTO) 64 K/uL (130-430); RED BLOOD CELL COUNT(AUTO) 3.08 MIL/uL (4.2-6.2); RED CELL DISTRIBUTION WIDTH 17.4 % (9.0-15.0)
== END 2023-10-17 11:41 | DRG 4 ==
LOC: SED 14:40 → STU 15:22 → SIC 09-18 13:21 → STU 10-15 17:35
PROVIDERS: ADMIT Internal Medicine; ATTEND Internal Medicine
PROC: 5A1955Z Respiratory Ventilation, Greater than 96 Consecutive Hours (ICD-10-PCS; 2023-09-18)
PROC: 0BH17EZ Insertion of Endotracheal Airway into Trachea, Via Natural or Artificial Opening (ICD-10-PCS; 2023-09-18)
PROC: 02HV33Z Insertion of Infusion Device into Superior Vena Cava, Percutaneous Approach (ICD-10-PCS; 2023-09-26)
PROC: B548ZZA Ultrasonography of Superior Vena Cava, Guidance (ICD-10-PCS; 2023-09-26)
PROC: 5A1D70Z Performance of Urinary Filtration, Intermittent, Less than 6 Hours Per Day (ICD-10-PCS; 2023-09-26)
PROC: 5A1D70Z Performance of Urinary Filtration, Intermittent, Less than 6 Hours Per Day (ICD-10-PCS; 2023-09-27)
PROC: 5A1D70Z Performance of Urinary Filtration, Intermittent, Less than 6 Hours Per Day (ICD-10-PCS; 2023-09-28)
PROC: 30233N1 Transfusion of Nonautologous Red Blood Cells into Peripheral Vein, Percutaneous Approach (ICD-10-PCS; 2023-09-28)
PROC: 5A1D70Z Performance of Urinary Filtration, Intermittent, Less than 6 Hours Per Day (ICD-10-PCS; 2023-09-30)
PROC: 5A1D70Z Performance of Urinary Filtration, Intermittent, Less than 6 Hours Per Day (ICD-10-PCS; 2023-10-02)
PROC: 02HV33Z Insertion of Infusion Device into Superior Vena Cava, Percutaneous Approach (ICD-10-PCS; 2023-10-04)
PROC: B548ZZA Ultrasonography of Superior Vena Cava, Guidance (ICD-10-PCS; 2023-10-04)
PROC: 5A1D70Z Performance of Urinary Filtration, Intermittent, Less than 6 Hours Per Day (ICD-10-PCS; 2023-10-04)
PROC: 06PYX3Z Removal of Infusion Device from Lower Vein, External Approach (ICD-10-PCS; 2023-10-05)
PROC: 02HV33Z Insertion of Infusion Device into Superior Vena Cava, Percutaneous Approach (ICD-10-PCS; 2023-10-05)
PROC: B548ZZA Ultrasonography of Superior Vena Cava, Guidance (ICD-10-PCS; 2023-10-05)
PROC: 4A00X4Z Measurement of Central Nervous Electrical Activity, External Approach (ICD-10-PCS; 2023-10-06)
PROC: 5A1D70Z Performance of Urinary Filtration, Intermittent, Less than 6 Hours Per Day (ICD-10-PCS; 2023-10-07)
PROC: 5A1D70Z Performance of Urinary Filtration, Intermittent, Less than 6 Hours Per Day (ICD-10-PCS; 2023-10-09)
PROC: 5A1D70Z Performance of Urinary Filtration, Intermittent, Less than 6 Hours Per Day (ICD-10-PCS; 2023-10-10)
PROC: B5181ZA Fluoroscopy of Superior Vena Cava using Low Osmolar Contrast, Guidance (ICD-10-PCS; 2023-10-11)
PROC: 0DH63UZ Insertion of Feeding Device into Stomach, Percutaneous Approach (ICD-10-PCS; 2023-10-11)
PROC: 30233R1 Transfusion of Nonautologous Platelets into Peripheral Vein, Percutaneous Approach (ICD-10-PCS; 2023-10-11)
PROC: 02PYX3Z Removal of Infusion Device from Great Vessel, External Approach (ICD-10-PCS; 2023-10-11)
PROC: 02HV33Z Insertion of Infusion Device into Superior Vena Cava, Percutaneous Approach (ICD-10-PCS; 2023-10-11)
PROC: 0JH63XZ Insertion of Tunneled Vascular Access Device into Chest Subcutaneous Tissue and Fascia, Percutaneous Approach (ICD-10-PCS; 2023-10-11)
PROC: B548ZZA Ultrasonography of Superior Vena Cava, Guidance (ICD-10-PCS; 2023-10-11)
PROC: 0B110F4 Bypass Trachea to Cutaneous with Tracheostomy Device, Open Approach (ICD-10-PCS; principal; 2023-10-11 11:12)
PROC: 5A1D70Z Performance of Urinary Filtration, Intermittent, Less than 6 Hours Per Day (ICD-10-PCS; 2023-10-12)
PROC: 5A1D70Z Performance of Urinary Filtration, Intermittent, Less than 6 Hours Per Day (ICD-10-PCS; 2023-10-15)
PROC: 4A00X4Z Measurement of Central Nervous Electrical Activity, External Approach (ICD-10-PCS; 2023-10-16)
DX: A41.9 Sepsis, unspecified organism (principal); J18.9 Pneumonia, unspecified organism; G92.8 Other toxic encephalopathy; R65.21 Severe sepsis with septic shock; J96.21 Acute and chronic respiratory failure with hypoxia; E43 Unspecified severe protein-calorie malnutrition; N17.0 Acute kidney failure with tubular necrosis; C79.51 Secondary malignant neoplasm of bone; N39.0 Urinary tract infection, site not specified; M86.8X7 Other osteomyelitis, ankle and foot; Z20.822 Contact with and (suspected) exposure to COVID-19; B95.2 Enterococcus as the cause of diseases classified elsewhere; C61 Malignant neoplasm of prostate; D64.9 Anemia, unspecified; E11.40 Type 2 diabetes mellitus with diabetic neuropathy, unspecified; K70.30 Alcoholic cirrhosis of liver without ascites; I10 Essential (primary) hypertension; K21.9 Gastro-esophageal reflux disease without esophagitis; J44.9 Chronic obstructive pulmonary disease, unspecified; T38.0X5A Adverse effect of glucocorticoids and synthetic analogues, initial encounter; W19.XXXA Unspecified fall, initial encounter; E83.51 Hypocalcemia; Y93.89 Activity, other specified; Y92.89 Other specified places as the place of occurrence of the external cause; Z74.01 Bed confinement status; Y99.8 Other external cause status; Z79.4 Long term (current) use of insulin; D69.59 Other secondary thrombocytopenia; Z86.2 Personal history of diseases of the blood and blood-forming organs and certain disorders involving the immune mechanism; Z68.25 Body mass index [BMI] 25.0-25.9, adult; Z66 Do not resuscitate; Z87.440 Personal history of urinary (tract) infections; Z86.73 Personal history of transient ischemic attack (TIA), and cerebral infarction without residual deficits; Z79.899 Other long term (current) drug therapy; Z79.84 Long term (current) use of oral hypoglycemic drugs; Z79.51 Long term (current) use of inhaled steroids
CPT/HCPCS: 36415; 36600; 70450-TC; 71045; 71250-TC; 73030; 73060; 76000; 76770; 78610; 80048; 80053; 80074; 80076; 80307; 81000; 81001; 81015; 82009; 82140; 82550; 82553; 82800-TC; 82803; 82948; 83037; 83540; 83550; 83605; 83735; 83880; 84100; 84153; 84439; 84443; 84484; 84550; 85007; 85025; 85027; 85384; 85610; 85730; 86022; 86480; 86886; 86900; 86901; 86920; 87040; 87070; 87081; 87086; 87186; 87205; 90935; 90937; 93005; 93306; 93970; 94003; 94070; 94640; 94760; 95816; 95824; 97530-GP; 99285; C1750; G0378; G0480; G0481; G0482; J0456; J0692; J1030; J1644; J1650; J1815; J1940; J1956; J2020; J2185; J2250; J2270; J2310; J2543; J2704; J2765; J2930; J3010; J3370; J3465; J3475; J3480; J3490; J7050; J7060; P9021; P9034; P9046; Q5106